=== PATIENT | male | born 1955 | race Caucasian/White ===

== ENCOUNTER 2022-05-27 23:10 | Inpatient (IN) | payer MEDICARE, BC, SELFPAY ==
[2022-05-27 23:57] VITALS: BMI 25.0
[2022-05-28] VITALS (8 sets, daily range): BP systolic 146–157; BP diastolic 64–102; PULSE 69–89; RESP 16–20; TEMP 36.2–36.7; O2SAT 94–98
[2022-05-28 05:32] LABS: Absolute Lymphocyte Count 2.09 X10^3/uL (0.83-4.51); Absolute Neutrophil Count 8.6 X10^3/uL (2.0-7.7); Basophil# 0.07 X10^3/uL; Basophil% 0.6 % (0-1); Eosinophil# 0.24 X10^3/uL; Hemoglobin 15.6 g/dL (13.0-16.5); Lymphocyte # 2.09 X10^3/ul (0.83-4.51); Lymphocyte % 17.5 % (19-41); Mean Corp Hgb Conc 33.9 g/dL (32-36); Mean Corpuscular Hgb 31.9 pg (27.0-32.0); Mean Corpuscular Volume 94.1 fL (80-94); Mean Platelet Vol. 8.9 fl (6.2-12.0); Monocyte# 0.88 X10^3/uL; Monocyte% 7.4 % (0-10); NRBC Flagged by Analyzer 0 % (0-5); Neutrophil % 72.2 % (47-70); Platelet Count 279 K/mm3 (150-450); RBC Distribution Width SD 44.6 fl (35.1-43.9); Red Blood Count 4.89 M/mm3 (4.6-6.2); White Blood Count 11.9 K/mm3 (4.4-11.0)
[2022-05-28 05:51] LABS: Anion Gap 8 (5-15); BUN 27 mg/dL (7-18); BUN/Creat Ratio 26.2 RATIO (10-20); Calcium,Total 8.8 mg/dL (8.5-10.1); Chloride 112 mmol/L (98-107); Creatinine, Serum 1.03 mg/dL (0.70-1.30); EST Glomerular Filtration Rate 77 mL/min (>60); Est Glom Filt Rate - Afr Amer 93 mL/min (>60); Glucose 168 mg/dL (74-106); Magnesium 2.2 mg/dL (1.6-2.6); Phosphorus 2.8 mg/dL (2.5-4.9); Potassium 3.8 mmol/L (3.5-5.1); Sodium Level 144 mmol/L (136-145)
[2022-05-28] MEDS: Metoprolol Tartrate 50 MG Tablet PO ×2 (09:10→21:55)
[2022-05-28] MEDS: dilTIAZem CD 240 MG Capsule PO (09:10)
[2022-05-28] MEDS: Senna/Docusate Sodium 1 Tablet 2 TABLET PO ×2 (09:10→21:55)
[2022-05-28] MEDS: Aspirin 81 MG TAB.CHEW PO (09:10)
--- NOTE | 2022-05-28 14:37 | HP.PCM_ITS ---
HPI - General General Date of Admission: 05/27/22 Date of Service: 05/28/22 Chief Complaint: Debility due to acute ischemic infarction in the L cerebral hemisphere with severe expressive aphasia, R side neglect and R side weakness. HPI Narrative MARY MATTHEWS, is a 66 YO M with a PMH of PAF (on Metoprolol for rate control) and chronic anticoagulation with Xarelto who presented to [facility] on 05/25/22 with complaint of facial droop, trouble walking and inability to speak. He was last seen normal at bedtime the night before. He was in AF at a rate of 134 bpm upon arrival at the emergency department. He had recently had a R rotator cuff repair on 04/16/22 and Xarelto had been held for 2 weeks. He was supposed to have restarted Xarelto but, his did not know if he ever resumed Xarelto after the surgery. NIH upon arrival at the ED was 6. CTB showed no bleeding. CTA of the head and neck showed the carotid and vertebral circulation to be within normal limits. There was a diminutive basilar artery. He was then sent for an MRI that demonstrated an acute ischemic infarction in the left cerebral hemisphere. An incidental finding was an arachnoid cyst in the left middle cranial fossa measuring 2 cm x 4 cm with no measurable mass-effect. Blood pressure at arrival to the emergency department was 187/116. He was started on Cardizem infusion and heparin. HGBA1C was 6.2 and the LDL was 114 with an HDL of 55. While at [facility] he also had a transthoracic echocardiogram that showed normal left ventricular function with an EF of 60%. There was no significant valvular heart disease. There was no mention on the ECHO report of a bubble study being done. He was seen by PT/OT/ST while in the hospital and recommendation was made for acute rehab at [place]. He was transferred to the acute inpt rehab unit at [facility] on 05/27/22 for 3 hours of therapy daily to restore function/independence at or hear his level prior to the stroke. He is retired and is very active at baseline. His told the SW that he does not smoke, drink or use drugs. the hx from nursing at admission last night was that he is a sometime smoker.....not daily. He loves to be in the outdoors. He did not arrive from [place] until 11 PM at night and he has been tearful several times in the 12 hours he has been here. He has no hx of depression. A.m. labs show a mildly elevated white blood cell count at 11.9 with a hem oglobin of 15.6 and normal platelets. Sodium is 144 and the chloride is 112. The BUN is elevated at 27 and the creatinine is 1.03 with an estimated creatinine clearance of 71.5. Fasting glucose is 168. Phosphorus and magnesium are within normal limits. [facility] Medical History (Updated 05/31/22 @ 12:[address] Elo Nava DO) Atrial fibrillation Hypertension Home Medications aspirin 81 mg chewable tablet 81 mg PO DAILY HEART HEALTH 05/28/22 [History Last Taken Unknown] atorvastatin 40 mg tablet 40 mg PO DAILY CHOLESTEROL 05/28/22 [History Last Taken Unknown] diltiazem HCl 240 mg tablet,extended release 24 hr (Cardizem LA) 240 mg PO DAILY HEART 05/28/22 [History Last Taken Unknown] metoprolol tartrate 25 mg tablet 50 mg BID HTN 05/28/22 [History Last Taken Unknown] oxycodone-acetaminophen 5 mg-325 mg tablet tab Q8H PRN PRN PAIN (1-10) 05/28/22 [History Last Taken Unknown] rivaroxaban 20 mg tablet (Xarelto) 20 mg PO DAILY BLOOD THINNER 05/28/22 [History Last Taken Unknown] Allergy/AdvReac Type Severity Reaction Status Date / Time No Known Allergies Allergy Verified 05/28/22 00:19 Family History unable to obtain Surgical History unable to obtain Social History household members: spouse and children housing: house number of children: 3 financial difficulty paying for basics: decline to answer service: No current occupational status: disabled pets and animals: No leisure activities: exercise, music and hunting Smoking Status: Former smoker ROS Review of Systems ROS Unobtainable: other Details: very limited due to aphasia. Cardiovascular Cardiovascular: Denies chest pain Respiratory/Chest Respiratory/Chest: Denies cough or shortness of breath with exertion Gastrointestinal Gastrointestinal: Denies abdominal pain Psychiatric Psychiatric: Reports other Details: no hx of anxiety or depression per his Vital Signs Vital Signs Vital Signs: 05/28/22 00:00 05/28/22 01:19 05/28/22 04:04 Temperature 97.6 F L 97.2 F L Temperature Source Temporal Oral Pulse Rate 69 86 89 Respiratory Rate 20 H 16 17 Respiratory Effort Normal Non-Labored Respiratory Depth Normal Respiratory Pattern Normal Blood Pressure 150/102 H 146/92 H Blood Pressure Mean 118 110 Blood Pressure Source Monitor Monitor Blood Pressure Position Semi-Fowlers Semi-Fowlers Blood Pressure Location Left Arm Left Arm Pulse Ox 94 98 96 Oxygen Delivery Method Room Air Room Air Room Air 05/28/22 09:10 05/28/22 09:15 05/28/22 14:01 Temperature 97.2 F L Temperature Source Oral Pulse Rate 73 73 Respiratory Rate 16 Respiratory Effort Respiratory Depth Respiratory Pattern Blood Pressure 157/64 H Blood Pressure Mean 95 Blood Pressure Source Monitor Blood Pressure Position Semi-Fowlers Blood Pressure Location Right Arm Pulse Ox 97 Oxygen Delivery Method Room Air Room Air Weight Weight: 169 lb 1.513 oz Body Mass Index (BMI) 25.0 Indicators for Scoring Admitted with or Primary Diagnosis of CVA/Stroke: Yes Hx of CVA/Stroke: No Modified [place] Score MRS Score at time of Evaluation: 4-Moderate/severe disability NIHSS NIHSS 1a. Level of Consciousness: Alert; keenly responsive 1b. LOC Questions: Answers neither question correctly. 1c. LOC Commands: Performs neither task correctly. 2. Best Gaze: Normal 3. Visual: Partial hemianopia 4. Facial Palsy: Partial paralysis (total or near-total paralysis of lower face) 5a. Left Arm: No drift; arm holds 90 (or 45) degrees for full 10 seconds 5b. Right Arm: UN=Amputation or joint fusion, explain: (recent R rotator cuff surgery on the R......only allowed passive ROM) 6a. Left Leg: No drift; leg holds 30-degree position for full 5 seconds 6b. Right Leg: No drift; leg holds 30-degree position for full 5 seconds (he can hold the leg up for 5 sec but, he has some hypertonicity ) 8. Sensory: Severe to total sensory loss; (R side) 9. Best Language: Severe aphasia; 10. Dysarthria: Severe dysarthria; 11. Extinction and Inattention: Profound nash-inattention or extinction to more than one modality; Total: 15 Physical Exam Const alert Constitutional Narrative: appears to be depressed.....he is tearful and looks very frustrated. He can produce only non-intelligible grunts when trying to speak. General Appearance: cooperative and well developed HEENT normocephalic and head/scalp atraumatic Mouth: dry mucous membranes Eyes PERRL and EOMs intact bilaterally Eyes Narrative: He has R side neglect but he can follow me from one side of the room to the other with his eyes. When I give him simple commands he does not follow them consistently and he will not move the R side to command but, if I demonstrate he will mimic me Neck No nuchal rigidity and no lymphadenopathy General: trachea midline Resp normal respiratory effort, normal air movement and clear to auscultation bilaterally Effort and Inspection: Negative for tachypneic, respiratory distress, labored or uses accessory muscles Cardio regular rate, regular rhythm, S1 normal heart sound, S2 normal heart sound, no murmurs, no rub and no gallops Cardio Narrative: No ectopy GI normal to inspection, nondistended, normoactive bowel sounds, soft to palpation and non-tender Extremity no calf tenderness General Extremity: Negative for clubbing, cyanosis or edema Skin General Skin Exam: no breakdown Rashes: no rashes Neuro Neuro Narrative: See the NIHSS R facial droop. + R side weakness, leg> arm. Intact sensation. Psych cooperative Psych Narrative: Tearful and depressed. Makes good eye contact with me when we are talking. Frustrated about not being able to talk. Can write a little......has an apraxia though. Not wiring what he wants to say. Results Lab / Micro Data Result Diagrams: 05/28/22 05:25 05/28/22 05:25 Labs: Laboratory Results - last 24 hr 05/28/22 05:25: WBC 11.9 H, RBC 4.89, Hgb 15.6, Hct 46.0, MCV 94.1 H, MCH 31.9, MCHC 33.9, RDW Std Deviation 44.6 H, RDW Coeff of Johan 13.0, Plt Count 279, MPV 8.9, Immature Gran % (Auto) 0.300, Neut % (Auto) 72.2 H, Lymph % (Auto) 17.5 L, [place] % (Auto) 7.4, Eos % (Auto) 2.0, Baso % (Auto) 0.6, Absolute Neuts (auto) 8.6 H, Absolute Lymphs (auto) 2.09, Nucleated RBC % 0 05/28/22 05:25: Sodium 144, Potassium 3.8, Chloride 112 H, Carbon Dioxide 24.0, Anion Gap 8, BUN 27 H, Creatinine 1.03, Estim Creat Clear Calc 71.50, Est GFR (MDRD) Af Amer 93, Est GFR (MDRD) Non-Af 77, BUN/Creatinine Ratio 26.2 H, Glucose 168 H, Calcium 8.8, Phosphorus 2.8, Magnesium 2.2 Assessment & Plan Assessment/Plan (1) Physical debility: PLAN: PT/OT/ST ordered (2) Ischemic cerebrovascular accident (CVA): (3) Right sided weakness: (4) Right-sided visual neglect: (5) Combined receptive and expressive aphasia: (6) Paroxysmal atrial fibrillation: (7) Chronic anticoagulation: (8) Hypertension: (9) Hyperglycemia: PLAN: check a HGBA1C and monitor BS's AC and HS for the next n72 hours. (10) Dyslipidemia: PLAN: On Atorvastatin 40 mg nightly (11) Depression as late effect of cerebrovascular accident (CVA): PLAN: Start Sertraline 50 mg daily. PLAN: Plan PLAN PT for gait stability OT for ADL's ST for evaluation Analgesics as needed Bowel protocol Fall precautions Assess for Anxiety/Depression - Sertraline started GI prophylaxis - not necessary at this time. No hx of PUD. DVT prophylaxis - on Xarelto Follow up with PCP, neurology and psychotherapist following DC from [facility] AM lab from this AM reviewed. Charges/Coding Visit Charges Inpatient E&M: 15966 Init Hosp L3
[2022-05-28] MEDS: Rivaroxaban 20 MG Tablet PO (16:03)
--- NOTE | 2022-05-28 16:30 | CASEMGMT ---
Social Work Met with patient to complete initial assessment. Introduced self and role. Pt unable to complete assessment d/t expressive aphasia. SW contacted whom also had dtr on phone to complete assessment. See SW assessment for details on home set up. Family's goal is for pt to return home at [facility]. Pt was full independent prior. Confirmed with pt's code status is a full code and pt has no advanced directives. SW offered to complete with pt during stay if pt is able. Educated to Medicare benefit. SW to continue to follow for DC planning as support as needed. Kailey Ryan, MVA STILL OPERATOR NURSERY ATTENDANT
[2022-05-28 16:35] LABS: Bedside Glucose 119 mg/dL (74-106)
[2022-05-28] MEDS: Atorvastatin Calcium 40 MG Tablet PO (21:56)
[2022-05-28 22:05] LABS: Bedside Glucose 133 mg/dL (74-106)
[2022-05-28] MEDS: NYSTATIN 500,000 UNIT/5 ML UDC 500000 UNIT PO (22:06)
[2022-05-29 06:40] LABS: Bedside Glucose 142 mg/dL (74-106)
[2022-05-29 07:41] VITALS: BP 139/90; PULSE 60; RESP 18; TEMP 36.9; O2SAT 96
[2022-05-29 09:11] VITALS: PULSE 78
[2022-05-29] MEDS: Senna/Docusate Sodium 1 Tablet 2 TABLET PO ×2 (09:11→20:51)
[2022-05-29] MEDS: dilTIAZem CD 240 MG Capsule PO (09:11)
[2022-05-29] MEDS: Sertraline 50 MG Tablet PO (09:11)
[2022-05-29] MEDS: Metoprolol Tartrate 50 MG Tablet PO ×2 (09:11→20:50)
[2022-05-29] MEDS: Aspirin 81 MG TAB.CHEW PO (09:12)
[2022-05-29] MEDS: NYSTATIN 500,000 UNIT/5 ML UDC 500000 UNIT PO ×4 (11:07→20:50)
[2022-05-29 12:45] LABS: Bedside Glucose 180 mg/dL (74-106)
[2022-05-29] MEDS: Insulin Lispro 100 UNIT/ML INSULN.PEN SC (13:15)
[2022-05-29 17:05] LABS: Bedside Glucose 142 mg/dL (74-106)
[2022-05-29] MEDS: Rivaroxaban 20 MG Tablet PO (17:15)
[2022-05-29 18:51] VITALS: BP 141/87; PULSE 69; RESP 18; TEMP 36.4; O2SAT 97
[2022-05-29 20:50] VITALS: BP 141/87; PULSE 69
[2022-05-29] MEDS: Atorvastatin Calcium 40 MG Tablet PO (20:50)
[2022-05-29 22:16] LABS: Bedside Glucose 168 mg/dL (74-106)
--- NOTE | 2022-05-30 02:53 | NURSING ---
REVIEWED AND AGREE WITH TANK CAR MECHANIC'S FUNCTIONAL ASSESSMENT AND HANDOFF CHARTING.
[2022-05-30] MEDS: Magnesium Hydroxide 30 ML UDC PO (05:05)
[2022-05-30 07:15] VITALS: O2SAT 93
[2022-05-30 07:30] LABS: Bedside Glucose 144 mg/dL (74-106)
[2022-05-30 07:32] VITALS: BP 148/92; PULSE 92; RESP 20; TEMP 36.7; O2SAT 96
[2022-05-30 08:09] VITALS: PULSE 92
[2022-05-30] MEDS: Aspirin 81 MG TAB.CHEW PO (08:09)
[2022-05-30] MEDS: dilTIAZem CD 240 MG Capsule PO (08:09)
[2022-05-30] MEDS: Sertraline 50 MG Tablet PO (08:09)
[2022-05-30] MEDS: Metoprolol Tartrate 50 MG Tablet PO ×2 (08:09→20:36)
[2022-05-30] MEDS: NYSTATIN 500,000 UNIT/5 ML UDC 500000 UNIT PO ×4 (08:09→20:35)
[2022-05-30] MEDS: Senna/Docusate Sodium 1 Tablet 2 TABLET PO ×2 (08:10→20:36)
[2022-05-30] MEDS: oxyCODONE 5 MG Tablet PO ×2 (08:55→22:06)
[2022-05-30 12:21] LABS: Bedside Glucose 148 mg/dL (74-106)
[2022-05-30 16:50] LABS: Bedside Glucose 144 mg/dL (74-106)
[2022-05-30] MEDS: Rivaroxaban 20 MG Tablet PO (17:05)
[2022-05-30 19:40] VITALS: BP 130/77; PULSE 66; RESP 15; TEMP 36.7; O2SAT 98
[2022-05-30 20:24] VITALS: PULSE 64; RESP 16; O2SAT 98
[2022-05-30 20:36] VITALS: PULSE 66
[2022-05-30] MEDS: Atorvastatin Calcium 40 MG Tablet PO (20:36)
[2022-05-30 21:05] LABS: Bedside Glucose 161 mg/dL (74-106)
[2022-05-31 06:30] LABS: Bedside Glucose 152 mg/dL (74-106)
[2022-05-31 07:25] VITALS: BP 135/90; PULSE 74; RESP 16; TEMP 36.2; O2SAT 97
[2022-05-31 07:29] VITALS: O2SAT 94
[2022-05-31] MEDS: dilTIAZem CD 240 MG Capsule PO (07:50)
[2022-05-31] MEDS: Insulin Lispro 100 UNIT/ML INSULN.PEN SC ×2 (07:50→12:05)
[2022-05-31] MEDS: Aspirin 81 MG TAB.CHEW PO (07:50)
[2022-05-31 07:51] VITALS: PULSE 77
[2022-05-31] MEDS: Senna/Docusate Sodium 1 Tablet 2 TABLET PO ×2 (07:51→21:09)
[2022-05-31] MEDS: Metoprolol Tartrate 50 MG Tablet PO ×2 (07:51→21:09)
[2022-05-31] MEDS: Sertraline 50 MG Tablet PO (07:51)
--- NOTE | 2022-05-31 09:07 | ST.MBS ---
Modified Barium Swallow - Patient Information Study Date: 05/31/22 Study Time: 08:00 Direct Billable Minutes: 180 Total Minutes procedure & reportin Diagnosis: I63.9, R41.4 Referring Physician: Elo Nava Reason for Referral: Objectively assess swallow function, risk for aspiration, and determine recommendations for least restrictive diet textures and compensatory strategies to improve safety of swallow. Medical History: MARY MATTHEWS, is a 66 YO M with a PMH of PAF (on Metoprolol for rate control) and chronic anticoagulation with Xarelto who presented to [facility] on 05/25/22 with complaint of facial droop, trouble walking and inability to speak. He was last seen normal at bedtime the night before. He was in AF at a rate of 134 bpm upon arrival at the emergency department. He had recently had a R rotator cuff repair on 04/16/22 and Xarelto had been held for 2 weeks. He was supposed to have restarted Xarelto but, his did not know if he ever resumed Xarelto after the surgery. NIH upon arrival at the ED was 6. CTB showed no bleeding. CTA of the head and neck showed the carotid and vertebral circulation to be within normal limits. There was a diminutive basilar artery. He was then sent for an MRI that demonstrated an acute ischemic infarction in the left cerebral hemisphere. An incidental finding was an arachnoid cyst in the left middle cranial fossa measuring 2 cm x 4 cm with no measurable mass-effect. Blood pressure at arrival to the emergency department was 187/116. While at [facility] he also had a transthoracic echocardiogram that showed normal left ventricular function with an EF of 60%. There was no significant valvular heart disease. There was no mention on the ECHO report of a bubble study being done. He was seen by PT/OT/ST while in the hospital and recommendation was made for acute rehab at [place]. He was transferred to the acute inpt rehab unit at [facility] on 05/27/22 for 3 hours of therapy daily to restore function/independence at or hear his level prior to the stroke. He is retired and is very active at baseline. Current Diet Ordered: PUREE/NTL Dentition: Natural Teeth, Missing Teeth Mental Status: Impaired Comment: s/p CVA - impaired verbal speech, impaired auditory comprehension Respiratory Status: Oxygenating on Room Air - Penetration-Aspiration Scale Penetration-Aspiration Scale: OBJECTIVE ASSESSMENT OF SWALLOW FUNCTION (QUANTITATIVE ? PER TRIAL): PENETRATION / ASPIRATION SCALE (YOUSSEF): 1 = does not enter airway 2 = enters airway/above vocal folds/ejected 3 = enters airway/above vocal folds/not ejected 4 = enters airway/contacts vocal folds/ejected 5 = enters airway/contacts vocal folds/not ejected 6 = enters airway/below vocal folds/ejected 7 = enters airway/below vocal folds/not ejected despite effort 8 = enters airway/below vocal folds/no effort VIDEOFLOROSCOPIC SCALE SCORE (YOUSSEF): Grade I = aspiration of material that has penetrated into the laryngeal vestibule, intact cough reflex Grade II = aspiration < 10 % of the bolus, intact cough reflex Grade III = aspiration of < 10 % of the bolus, reduced cough reflex or aspiration of > 10 % of the bolus, intact cough reflex Grade IV = aspiration of > 10 % of the bolus, reduced cough reflex - Penetration-Aspiration Scale Score Thin Liquid via teaspoon Trial 1 Result: 1= does not enter airway Thin Liquid via large single sip from cup Result: 1= does not enter airway [place] Thick Liquid via small single sip from cup Result: 1= does not enter airway [place] Thick Liquid via small single sip from cup Result: 1= does not enter airway Pudding Result: 1= does not enter airway Cookie Result: 1= does not enter airway Thin Liquid via large single sip from cup Trial 2 Result: 7= enters airways/below vocal folds/not ejected despite effort Thin Liquid via sequential sips from straw Result: 3= enters airways/above vocal folds/not ejected - Oral Phase Labial Seal: No Labial Escape Tongue Control During Bolus Hold: Posterior escape of greater than half of bolus Bolus Preparation/Mastication: Minimal chewing/mashing with majority of bolus unchewed Bolus Transport/Lingual Motion: Slowed tongue motion Oral Residue: Majority of bolus remaining - Pharyngeal Phase Initiation of Pharyngeal Swallow: Bolus head in pyriforms Soft Palate Elevation: No bolus between soft palate and pharyngeal wall Laryngeal Elevation: Partial superior movement thyroid cart/partial apprx aryt-epig petiole Anterior Hyoid Excursion: Partial anterior movement Epiglottic Movement: Partial inversion Laryngeal Vestibule Closure at Height of Swallow: Incomplete; narrow column of air/contrast in laryngeal vestibule Pharyngeal Stripping Wave: Present - diminished Pharyngoesophageal Segment Opening: Parital distension and partial duration; parital obstruction of flow Tongue Base Retraction: Narrow column of contrast between tongue base & post. pharyngeal wall Pharyngeal Residue: Collection of residue within or on pharyngeal structures - Diagnosis/Impression Diagnosis: moderate oropharyngeal dysphagia R13.12 Impression: Oral phase primarily marked by... - mastication insufficiency w/ piecemeal deglutition of cookie, 4x swallows to clear oral and pharyngeal residue - slowed tongue motion - decreased bolus control resulting in posterior loss of greater than half of bolus to the vallecula and pyriforms Pharyngeal phase primarily marked by... - decreased airway closure during deglutition attributed to reduced laryngeal elevation, anterior hyoid excursion and insufficient epiglottic inversion - laryngeal penetration seen by large sequential thin by straw and aspiration seen w/ large sip of thin via cup - collection of pharyngeal residue to the vallecula and pyriforms w/ various consistencies - increased risk for post prandial aspiration - Recommendations Diet: Puree Textures, [place]-thick Liquids Compensatory Strategies: Small Bites, Small Sips, Slow Rate, Feed only when alert, Alternate bites/solids and sips/liquids, Sitting upright, Remain sitting upright for 30 minutes after PO intake, Minimize/decrease distractions, Assist with verbal cues to use recommended strategies Supervision: 1:1 Close Supervision Recommend Repeat Modified Barium Swallow: TBD Need for Skilled Speech Therapy Services: Yes Comment: Would consider training and implementation of oropharyngeal strengthening exercises to facilitate improved oropharyngeal strength and coordination. Consider for upgrade to minced and moist textures w/ ELECTRONIC MASKING SYSTEM OPERATOR Consider for upgrade to small sips of thin by cup or thin by tsp w/ ELECTRONIC MASKING SYSTEM OPERATOR Education Completed: 1. Described result of evaluation., 2. Pt understands evaluation & agrees with goals and treatment plan. - Status Active ST Patient: Active - Contact Information [facility] Speech Therapy:: Unique Hoover M.A. [facility]-ELECTRONIC MASKING SYSTEM OPERATOR Speech-Language Pathologist [facility] [address] [place] [address] [email or web address] [phone] 05/31/22 10:19 05/31/22 10:20
[2022-05-31 11:55] LABS: Bedside Glucose 190 mg/dL (74-106)
[2022-05-31] MEDS: NYSTATIN 500,000 UNIT/5 ML UDC 500000 UNIT PO ×4 (12:05→21:09)
--- NOTE | 2022-05-31 15:18 | PCM.RU.PYE ---
Admission Information Primary Diagnosis:: Debility due to ischemic L cerebral CVA with expressive and receptive aphasia and R side weakness. Status Changes from Prescreening?: No changes Identified Actual Problem List:: Skin Intergrity, Cognitve Impr/Memory Loss, Depression, Alteration in Sleep, Mobility Impaired, Self Care Deficit, Ineffective Communication, Fluid Change-Dehydration and Alteration-Leisure Activ. Potential Problem List:: DVT, Bleeding, Infection, UTI, Aspiration, Falls, Skin Integrity and Depression Risk of Complications DVT: CRYSTAL Hose and - (Xarelto 20 mg p.o. daily) Bleeding: Monitor Lab Values, Nursing to Teach Precautions for anti-coagulation therapy., Wound, if applicable, to be assessed every shift. and Stroke patients assessed for lethargy or change in status. Infection: Clinical Staff to Monitor for S/S of infection: and S/S of infection include fever, redness, warmth, etc. Urinary Tract Infection: Monitor for frequency, burning, discomfort, or incontinence. and Nursing will obtain urine sample for urinalysis and C&S when ordered. Aspiration: Clinical staff will monitor for coughing, drooling, congestion., Speech will evaluate swallowing and dsyphasia. and Nursing will monitor patient swallowing during meals. Falls: Patient will be evaluated for Fall Precautions and Patient will be placed on Fall Precautions as indicated per protocol. Skin Breakdown: Nursing will assess skin daily using assessment tool. and Nursing will place on Skin Breakdown Precautions as indicated. Pain: Clinical staff will assess patient's pain level per protocol., Medications will be given, if needed, and the pain level reassessed. and Other methods: Massage, distraction, decrease stimulus, etc. used PRN. Plan of Care Patient requires physician specializing in physical medicine and rehab oversight to provide close medical supervision of rehab issues including: Pain Management, Sleep Problems, Bowel and Bladder, Medical and co-morbidity Management, DVT prophylaxis, Rehabilitation Leadership and Coordination of treatment team Patient needs Physical Therapy: For a minimum of 1 hour and At least 5 out of 7 days Patient needs Physical Therapy to improve:: Mobility, Strengthening, Transfers, Stretching, ROM, Endurance, Stairs, Gait and Balance Patient needs Occupational Therapy: For a minimum of 1 hour and At least 5 out of 7 days Patient needs Occupational Therapy to improve ADL's incl.: Eating, Grooming, Bathing, Dressing, Toileting, Toilet transfers, Community Reintegration, Higher functioning activities, Household tasks, Adaptive Equipment, Splinting and Other activities as determined Patient requires speech therapy: For a minimum of 1 hour and At least 5 out of 7 days Patient requires speech therapy for: Swallowing, Cognition, Language Skills and Compensatory Strategies Patient requires 24/ Rehabilitation Nursing for: Pain Issues, Identifying and preventing risk factors, Monitoring and reporting current medical conditions, Assisting with ambulation, transfer, and all ADL's, Teaching patients about disease process and medications, Family teaching, Providing safe environment, Bowel and Bladder Issues, Skin integrity and Medication Management Patient needs Hiv Cts Specialist/ Case Management for: Discharge Planning, Arranging Home Equipment or Services and Family Interventions Patient needs Dietary and Nutrition Services for: Adequate Nutrition, Nutritional Supplements and Nutritional Education Goals Patient will remain: free from falls and or injury at time of discharge. Patient will perform bed mobility at: MOD I level of assist. Patient will complete transfers from bed to chair at: MOD I level of assist. Patient will ambulate: - (200 feet with least restrictive device at standby assist on various surfaces to allow patient to return home/community) Patient will complete upper body dressing at: - (To be assessed as he progresses and goals adjusted accordingly.) Patient will complete lower body dressing at: - (min assist) Patient will complete toileting at: - (Supervised) Patient will perform bathing at: - (Supervision/min assist) Patient will complete grooming at: MOD I level of assist. (or supervision.....) Patient will complete home management skills at: MOD I level of assist. Patient will achieve: - (3 steps with 1 handrail at contact-guard assist to allow access to his home entrance.) Patient will have pain level of: of 3 or less Patient's skin will: remain intact Patient will receive: adequate nutrition. Discharge Planning Pt Prognosis for Sig. Practical Improv. w/in Reasonable Time: Good Estimated Length of stay (days): 28 Anticipated D/C Destination: Home Was Preadmission Assessment Accurate?: Yes
--- NOTE | 2022-05-31 15:26 | PCM.PROGNOTE ---
Subjective Subjective Afebrile VSS-blood pressures are frequently above the goal of 130/80. Heart rate is well controlled. Maintaining appropriate oxygen saturation on RA Oral intake is getting better. He ate 75 to 100% of his breakfast this AM. Blood sugar record was reviewed. Blood sugars are consistently elevated. Hemoglobin A1c ordered for the AM. He has only had 3 total units of insulin coverage since he was placed on a sliding scale. Discussed with nursing - no problems that need addressed Reviewed the PT/OT/ST notes Medication list reviewed. Has not taken any Trazodone. He took 2 doses of Oxycodone 5 mg on 05/30 and has not taken any today. Still nonverbal. Seems to understand what I am saying. Does not appear to be in pain or uncomfortable. Objective Data Objective Data Vital Signs: Vital Signs Temp Pulse Resp BP Pulse Ox O2 Del Method 97.2 F L 77 16 135/90 H 94 Room Air 05/31/22 07:25 05/31/22 07:51 05/31/22 07:25 05/31/22 07:25 05/31/22 07:29 05/31/22 10:00 Oxygen Delivery Method Room Air Weight: 169 lb 1.513 oz Body Mass Index (BMI) 25.0 Intake & Output: Intake and Output for Last 24 Hours 05/29/22 05/30/22 05/31/22 23:59 23:59 23:59 Intake Total 600 / 600 60 / 60 540 / 540 Output Total 650 / 650 675 / 675 250 / 250 Balance -50 / -50 -615 / -615 290 / 290 Lab / Micro Data Result Diagrams: 05/28/22 05:25 06/01/22 05:30 Labs: Laboratory Results - last 24 hr 05/30/22 16:29: POC Glucose 144 H 05/30/22 20:43: POC Glucose 161 H 05/31/22 06:07: POC Glucose 152 H 05/31/22 11:06: POC Glucose 190 H Physical Exam Const Constitutional Narrative: awake, making eye contact with me, non-verbal still HEENT HEENT Narrative: still with pronounced R facial droop Eyes Eyes Narrative: PERRL, EOMI, can cross the midline Resp Resp Narrative: CTA Cardio Cardio Narrative: irreg irreg today but with controlled VR GI GI Narrative: soft, ND, normal BS's, no guarding with palpation. Extremity Extremity Narrative: no edema Assessment & Plan Assessment/Plan (1) Physical debility: PLAN: Continue therapy (2) Ischemic cerebrovascular accident (CVA): PLAN: embolic......may not have been taking Xarelto at the time of the stroke. suspects he never restarted the medication after the rotator cuff surgery (3) Right sided weakness: (4) Combined receptive and expressive aphasia: (5) Chronic anticoagulation: PLAN: continue Xarelto Charges/Coding Visit Charges Inpatient E&M: 00189 Subs Hosp L2
[2022-05-31 16:31] LABS: Bedside Glucose 106 mg/dL (74-106)
[2022-05-31] MEDS: Rivaroxaban 20 MG Tablet PO (16:55)
[2022-05-31 19:10] VITALS: BP 129/82; PULSE 60; RESP 18; TEMP 36.5; O2SAT 98
[2022-05-31 21:09] VITALS: PULSE 63
[2022-05-31] MEDS: Atorvastatin Calcium 40 MG Tablet PO (21:09)
[2022-05-31] MEDS: oxyCODONE 5 MG Tablet PO (21:11)
[2022-05-31 21:57] VITALS: PULSE 63; RESP 16; O2SAT 96
[2022-05-31 22:45] LABS: Bedside Glucose 152 mg/dL (74-106)
[2022-06-01 06:51] LABS: ALB/GLOB Ratio 0.9 RATIO (0.9-2.4); AST(SGOT) 17 U/L (15-37); Alanine Aminotransfer ALT/SGPT 29 U/L (16-61); Albumin, Serum 3.4 g/dL (3.2-5.0); Alkaline Phosphatase 75 U/L (45-117); Anion Gap 8 (5-15); BUN 28 mg/dL (7-18); BUN/Creat Ratio 28.4 RATIO (10-20); Calcium,Total 8.7 mg/dL (8.5-10.1); Chloride 104 mmol/L (98-107); Creatinine, Serum 0.98 mg/dL (0.70-1.30); EST Glomerular Filtration Rate 81 mL/min (>60); Est Glom Filt Rate - Afr Amer 98 mL/min (>60); Estimated Creatinine Clearance 75.15 ml/min; Globulin 3.6 g/dL (2.2-4.2); Glucose 138 mg/dL (74-106); Potassium 3.7 mmol/L (3.5-5.1); Sodium Level 139 mmol/L (136-145)
[2022-06-01 07:20] LABS: Bedside Glucose 135 mg/dL (74-106)
[2022-06-01 07:55] LABS: Hemoglobin A1c 6.2 % (3.8-5.6)
[2022-06-01] MEDS: dilTIAZem CD 240 MG Capsule PO (08:14)
[2022-06-01] MEDS: Sertraline 50 MG Tablet PO (08:14)
[2022-06-01] MEDS: Aspirin 81 MG TAB.CHEW PO (08:14)
[2022-06-01 08:15] VITALS: BP 124/88; PULSE 76
[2022-06-01] MEDS: Senna/Docusate Sodium 1 Tablet 2 TABLET PO ×2 (08:15→22:03)
[2022-06-01] MEDS: Metoprolol Tartrate 50 MG Tablet PO (08:15)
[2022-06-01] MEDS: NYSTATIN 500,000 UNIT/5 ML UDC 500000 UNIT PO ×4 (08:15→22:03)
[2022-06-01 08:27] VITALS: BP 124/88; PULSE 76; RESP 16; TEMP 36.2; O2SAT 97
--- NOTE | 2022-06-01 10:03 | CASEMGMT ---
Social Work IDT met with patient and , dtr via conference call for Team meeting. Discussed patient's progress in PT/OT/ST/SN. Educated to Medicare benefit. Pt/family goal is for pt to return home with , however, is only able to minimally assist. Broached topic of pt may needing SNF placement from [place]. Educated to SNF Medicare benefit. Offered to send SNF list via [employer]. Dtr prefers to have list printed out and left in pt room to review with pts and pt during visit. Printed list of SNF providers including quality and resource use data and consistent with the patient?s preferred geographic region, medical needs, and insurance network via [employer] Guide. Educated to Stroke Support Group and left brochure in pt room for family during their visit.SW to continue to follow for DC planning. Will Reteam next week. [place]
--- NOTE | 2022-06-01 11:52 | PCM.PROGNOTE ---
Subjective Subjective Don was seen on TEAM rounds today. His dtr Karina and his participated by phone. Afebrile VSS - BP's are not at goal yet and he is 6 days out from the stroke Maintaining appropriate oxygen saturation on RA Oral intake is not the greatest. Refused breakfast this AM but, took 75-100% of supper last evening and also took 75-100% of lunch. Discussed with nursing - no problems that need addressed Reviewed the PT/OT/ST notes - still frustrated about not being able to communicate what he wants to say. Decreased his time with the TUG already. Having speech and writing apraxia. Also with Left side neglect. Vision is intact to confrontation. Medication list reviewed. Non- verbal. Yes and no answers are not consistently appropriate. He looks comfortable. After review of the flow chart it appears as though he is continent of urine and stool. PVR's were all less than 200. Breathing is not labored. He engages when we were all talking about him on rounds. ROS is compromised by the aphasia. Lab was personally reviewed today. Potassium is 3.7 and the sodium is normal at 139. The BUN is 28 with a creatinine of 0.98 which is stable. Hemoglobin A1c is 6.2. LFTs are within normal limits. I reviewed the results of the MBS yesterday. He has moderate oral pharyngeal dysphagia and will continue on pur?ed textures and nectar thick liquids. He aspirated thin liquids by straw and by cup. Objective Data Objective Data Vital Signs: Vital Signs Temp Pulse Resp BP Pulse Ox O2 Del Method 97.2 F L 76 16 124/88 H 97 Room Air 06/01/22 08:27 06/01/22 08:27 06/01/22 08:27 06/01/22 08:27 06/01/22 08:27 06/01/22 08:36 Oxygen Delivery Method Room Air Weight: 169 lb 8.568 oz Body Mass Index (BMI) 25.0 Intake & Output: Intake and Output for Last 24 Hours 05/30/22 05/31/22 06/01/22 23:59 23:59 23:59 Intake Total 60 / 60 1979 / 1979 60 / 60 Output Total 675 / 675 1500 / 1500 600 / 600 Balance -615 / -615 480 / 480 -540 / -540 Lab / Micro Data Result Diagrams: 05/28/22 05:25 06/01/22 05:30 Labs: Laboratory Results - last 24 hr 05/31/22 11:06: POC Glucose 190 H 05/31/22 16:10: POC Glucose 106 05/31/22 21:07: POC Glucose 152 H 06/01/22 05:30: Sodium 139, Potassium 3.7, Chloride 104, Carbon Dioxide 27.0, Anion Gap 8, BUN 28 H, Creatinine 0.98, Estim Creat Clear Calc 75.15, Est GFR (MDRD) Af Amer 98, Est GFR (MDRD) Non-Af 81, BUN/Creatinine Ratio 28.4 H, Glucose 138 H, Calcium 8.7, Total Bilirubin 1.00, AST 17, ALT 29, Alkaline Phosphatase 75, Total Protein 7.0, Albumin 3.4, Globulin 3.6, Albumin/Globulin Ratio 0.9 06/01/22 05:30: Hemoglobin A1c 6.2 H 06/01/22 06:59: POC Glucose 135 H Physical Exam Const alert and no apparent distress General Appearance: cooperative Eyes PERRL and EOMs intact bilaterally Eyes Narrative: He can track past the midline when I move from 1 side of the room to the other. Resp normal respiratory effort, normal air movement and clear to auscultation bilaterally Resp Narrative: occasional cough. Cardio regular rate, regular rhythm and no gallops GI normal to inspection, nondistended, normoactive bowel sounds, soft to palpation and non-tender Extremity no calf tenderness General Extremity: Negative for edema Skin General Skin Exam: no breakdown Rashes: no rashes Neuro Neuro Narrative: unable to produce sound yet other than a grunt. Persistent R side weakness and Left side neglect. Psych Psych Narrative: Sleeping well without a sleep aid. Eating pretty good most meals. Making eye contact with the person talking to him. No tears today. Assessment & Plan Assessment/Plan (1) Physical debility: PLAN: Continue therapy. (2) Ischemic cerebrovascular accident (CVA): PLAN: Likely embolic due to non-compliance with Xarelto following the rotator cuff repair. (3) Right sided weakness: (4) Ric-neglect of left side: (5) Apraxia complicating stroke: (6) Combined receptive and expressive aphasia: (7) Paroxysmal atrial fibrillation: (8) Chronic anticoagulation: (9) Prediabetes: (10) Dyslipidemia: PLAN: LDL was 114......on Atorvastatin now and the goal is LDL less than 70 (11) Hypertension: PLAN: Not at goal yet. Today is day #6 post stroke. Starting tomorrow if the BP is above goal will need to adjust antihypertensive regimen. 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 PLAN: Plan Discussed what an apraxia is with the family. Discussed starting an antidepressant and why it was started. Discussed goals of treatment to prevent another stroke. We do not know for sure if he was taking the Xarelto and if he was, was it being absorbed. Will order a Factor XI activity level next week to make sure that he is absorbing. All questions were answered and Don gave me a thumbs up at the conclusion of the meeting today. Will ask ST to start Arthur water protocol to keep him better hydrated. Charges/Coding Visit Charges Inpatient E&M: 30170 Subs Hosp L2
[2022-06-01 12:15] LABS: Bedside Glucose 164 mg/dL (74-106)
[2022-06-01] MEDS: Insulin Lispro 100 UNIT/ML INSULN.PEN SC (12:15)
[2022-06-01] MEDS: metFORMIN HCl 500 MG Tablet PO (14:54)
[2022-06-01 16:21] LABS: Bedside Glucose 148 mg/dL (74-106)
[2022-06-01] MEDS: Rivaroxaban 20 MG Tablet PO (17:11)
[2022-06-01 21:48] VITALS: BP 122/64; PULSE 54; RESP 16; TEMP 36.9; O2SAT 96
[2022-06-01] MEDS: Atorvastatin Calcium 40 MG Tablet PO (22:03)
[2022-06-01 22:04] VITALS: PULSE 54
[2022-06-01 22:20] LABS: Bedside Glucose 130 mg/dL (74-106)
[2022-06-02 07:30] LABS: Bedside Glucose 150 mg/dL (74-106)
[2022-06-02 08:03] VITALS: BP 139/75; PULSE 68
[2022-06-02] MEDS: Sertraline 50 MG Tablet PO (08:03)
[2022-06-02] MEDS: Metoprolol Tartrate 50 MG Tablet PO (08:03)
[2022-06-02] MEDS: dilTIAZem CD 240 MG Capsule PO (08:03)
[2022-06-02] MEDS: Senna/Docusate Sodium 1 Tablet 2 TABLET PO (08:03)
[2022-06-02] MEDS: metFORMIN HCl 500 MG Tablet PO (08:03)
[2022-06-02] MEDS: Insulin Lispro 100 UNIT/ML INSULN.PEN SC ×2 (08:03→17:37)
[2022-06-02] MEDS: Aspirin 81 MG TAB.CHEW PO (08:03)
[2022-06-02] MEDS: NYSTATIN 500,000 UNIT/5 ML UDC 500000 UNIT PO ×3 (08:03→20:30)
[2022-06-02 08:26] VITALS: BP 139/75; PULSE 68; RESP 16; TEMP 36.4; O2SAT 97
[2022-06-02 11:46] LABS: Bedside Glucose 132 mg/dL (74-106)
[2022-06-02] MEDS: Magnesium Hydroxide 30 ML UDC PO (13:29)
[2022-06-02 13:42] VITALS: O2SAT 98
--- NOTE | 2022-06-02 15:56 | CASEMGMT ---
Addendum entered by Kailey Ryan 06/02/22 16:07: Dtr requesting SNF list in [facility]. Provided updated list via [employer] Link to both dtr and 's cell phones. Original Note: Social Work Received Medicare days. Dtr visiting. SW updated dtr Medicare approved 18 days, with EDC 06/14. Dtr appreciative. [place]
[2022-06-02 16:56] LABS: Bedside Glucose 156 mg/dL (74-106)
[2022-06-02] MEDS: Rivaroxaban 20 MG Tablet PO (17:37)
[2022-06-02 19:32] VITALS: BP 124/68; PULSE 52; RESP 14; TEMP 36.2; O2SAT 95
[2022-06-02 20:13] VITALS: RESP 16
[2022-06-02] MEDS: Atorvastatin Calcium 40 MG Tablet PO (20:23)
[2022-06-02 20:36] VITALS: PULSE 51
[2022-06-02 21:06] LABS: Bedside Glucose 183 mg/dL (74-106)
[2022-06-03] VITALS (7 sets, daily range): BP systolic 127–148; BP diastolic 55–68; PULSE 50–51; RESP 16; TEMP 36.4–36.7; O2SAT 94–100
[2022-06-03 07:20] LABS: Bedside Glucose 150 mg/dL (74-106)
[2022-06-03] MEDS: NYSTATIN 500,000 UNIT/5 ML UDC 500000 UNIT PO ×3 (08:24→20:43)
[2022-06-03] MEDS: dilTIAZem CD 240 MG Capsule PO (08:25)
[2022-06-03] MEDS: Sertraline 50 MG Tablet PO (08:25)
[2022-06-03] MEDS: Senna/Docusate Sodium 1 Tablet 2 TABLET PO (08:25)
[2022-06-03] MEDS: Metoprolol Tartrate 50 MG Tablet PO ×2 (08:25→20:44)
[2022-06-03] MEDS: metFORMIN HCl 500 MG Tablet PO (08:25)
[2022-06-03] MEDS: Insulin Lispro 100 UNIT/ML INSULN.PEN SC (08:25)
[2022-06-03] MEDS: Aspirin 81 MG TAB.CHEW PO (08:25)
--- NOTE | 2022-06-03 11:10 | PN_ITS ---
Subjective Subjective Afebrile VSS -heart rate at night drops into the 50s. The systolic blood pressure yesterday ranged from 1 24-1 48 this morning. Diastolics are within goal. Maintaining appropriate oxygen saturation on RA Oral intake is improved. He took 1140 by mouth yesterday. Fluid balance yesterday was +65 and overnight he was +370. The blood sugar record was reviewed and he has had no hypoglycemia since the Glucophage was started. FBS today is 150 and the at bedtime blood sugar was 183. Discussed with nursing - no problems that need addressed. Nursing is concerned about the HR at night. He is on 50 mg BID of Metoprolol and 240 mg of Cardizem CD. Reviewed the PT/OT/ST notes - D/W the St yesterday and he was able to verbalize when singing [employer]. Bed mobility is at contact-guard assist/standby assist now. He transfers to stand at contact-guard assist/min assist. He has ambulated up to 100 feet at min/CGA with a hemiwalker. He is able to complete three 4 inch steps with 1 handrail at min assist x2. Medication list reviewed. He denies pain. He is appropriately shaking his head yes and no today. Denies CP, SOB, HERNANDEZ, lightheadedness, palpitations, dysuria. Family was in his room when I visited later in the day and he was engaged and smiling and interacting with them. Objective Data Objective Data Vital Signs: Vital Signs Temp Pulse Resp BP Pulse Ox O2 Del Method 98.0 F 51 L 16 148/55 H 100 Room Air 06/03/22 07:44 06/03/22 08:25 06/03/22 07:44 06/03/22 08:25 06/03/22 07:44 06/03/22 07:44 Oxygen Delivery Method Room Air Weight: 167 lb 5.294 oz Body Mass Index (BMI) 25.0 Intake & Output: Intake and Output for Last 24 Hours 06/01/22 06/02/22 06/03/22 23:59 23:59 23:59 Intake Total 540 / 540 1140 / 1140 720 / 720 Output Total 1050 / 1350 1075 / 1075 350 / 350 Balance -510 / -810 65 / 65 370 / 370 Lab / Micro Data Result Diagrams: 05/28/22 05:25 06/01/22 05:30 Labs: Laboratory Results - last 24 hr 06/02/22 11:24: POC Glucose 132 H 06/02/22 16:19: POC Glucose 156 H 06/02/22 20:35: POC Glucose 183 H 06/03/22 06:14: POC Glucose 150 H Physical Exam Const Constitutional Narrative: alert, smiling, engaged, good eye contact, no tears and he is much more animated. Was able to repeat Mama ad a few other sounds to me. Good understanding of what I am saying. HEENT HEENT Narrative: MM are moist Resp Resp Narrative: CTA Cardio Cardio Narrative: RRR today, not bradycardic when I examined him today. No gallop, no MM GI GI Narrative: Soft, nontender, nondistended, normal bowel sounds, no guarding with palpation. Extremity Extremity Narrative: No edema and no calf tenderness. Skin Skin Narrative: no rashes and no breakdown Assessment & Plan Assessment/Plan (1) Physical debility: (2) Ischemic cerebrovascular accident (CVA): (3) Right sided weakness: (4) Combined receptive and expressive aphasia: (5) Prediabetes: (6) Apraxia complicating stroke: (7) Ric-neglect of left side: (8) Depression as late effect of cerebrovascular accident (CVA): (9) Paroxysmal atrial fibrillation: (10) Chronic anticoagulation: (11) Bradycardia: PLAN: Plan 1. HH/BMP and a TSH in the AM. 2. Continue therapy. 3. Change the diet to Carb controlled, heart healthy 4. Overnight trending pulse ox to see if the low HR may be related to central sleep apnea due to the stroke 5. Continue Metformin 500 mg daily.......if BS's remain > 180 will increase to BID. Charges/Coding Visit Charges Inpatient E&M: 76968 Subs Hosp L2
[2022-06-03 11:45] LABS: Bedside Glucose 132 mg/dL (74-106)
[2022-06-03 16:55] LABS: Bedside Glucose 123 mg/dL (74-106)
[2022-06-03] MEDS: Rivaroxaban 20 MG Tablet PO (17:00)
[2022-06-03] MEDS: Atorvastatin Calcium 40 MG Tablet PO (20:43)
[2022-06-03 22:00] LABS: Bedside Glucose 140 mg/dL (74-106)
[2022-06-04 05:40] LABS: Hematocrit 40.8 % (40-54)
[2022-06-04 06:09] LABS: Anion Gap 6 (5-15); BUN 22 mg/dL (7-18); BUN/Creat Ratio 20.4 RATIO (10-20); Calcium,Total 8.8 mg/dL (8.5-10.1); Chloride 105 mmol/L (98-107); Creatinine, Serum 1.08 mg/dL (0.70-1.30); EST Glomerular Filtration Rate 73 mL/min (>60); Est Glom Filt Rate - Afr Amer 88 mL/min (>60); Estimated Creatinine Clearance 68.19 ml/min; Glucose 139 mg/dL (74-106); Potassium 4.1 mmol/L (3.5-5.1); Sodium Level 138 mmol/L (136-145); Thyroid Stim Hormone (TSH) 2.49 uIU/mL (0.358-3.74)
[2022-06-04 07:19] VITALS: BP 165/85; PULSE 52; RESP 15; TEMP 36.3; O2SAT 97
[2022-06-04 07:25] LABS: Bedside Glucose 144 mg/dL (74-106)
[2022-06-04 08:51] VITALS: PULSE 52
[2022-06-04] MEDS: Senna/Docusate Sodium 1 Tablet 2 TABLET PO (08:51)
[2022-06-04] MEDS: Metoprolol Tartrate 50 MG Tablet PO ×2 (08:51→22:17)
[2022-06-04] MEDS: Aspirin 81 MG TAB.CHEW PO (08:51)
[2022-06-04] MEDS: dilTIAZem CD 240 MG Capsule PO (08:51)
[2022-06-04] MEDS: Sertraline 50 MG Tablet PO (08:51)
[2022-06-04] MEDS: metFORMIN HCl 500 MG Tablet PO (08:51)
[2022-06-04] MEDS: NYSTATIN 500,000 UNIT/5 ML UDC 500000 UNIT PO ×4 (11:44→21:49)
[2022-06-04] MEDS: Insulin Lispro 100 UNIT/ML INSULN.PEN SC ×2 (12:30→17:34)
[2022-06-04 12:40] LABS: Bedside Glucose 162 mg/dL (74-106)
[2022-06-04] MEDS: Rivaroxaban 20 MG Tablet PO (17:22)
[2022-06-04 17:55] LABS: Bedside Glucose 158 mg/dL (74-106)
[2022-06-04] MEDS: Atorvastatin Calcium 40 MG Tablet PO (21:49)
[2022-06-04 22:00] VITALS: BP 130/65; PULSE 52; RESP 16; TEMP 36.5; O2SAT 96
[2022-06-04 22:17] VITALS: PULSE 52
[2022-06-04 22:41] LABS: Bedside Glucose 137 mg/dL (74-106)
[2022-06-05 06:36] LABS: Bedside Glucose 159 mg/dL (74-106)
[2022-06-05 07:55] VITALS: BP 147/63; PULSE 52; RESP 16; TEMP 36.8; O2SAT 97
[2022-06-05] MEDS: Insulin Lispro 100 UNIT/ML INSULN.PEN SC ×3 (08:19→17:42)
[2022-06-05] MEDS: metFORMIN HCl 500 MG Tablet PO (08:21)
[2022-06-05] MEDS: Aspirin 81 MG TAB.CHEW PO (08:21)
[2022-06-05] MEDS: NYSTATIN 500,000 UNIT/5 ML UDC 500000 UNIT PO ×4 (08:23→21:33)
[2022-06-05] MEDS: Sertraline 50 MG Tablet PO (08:23)
[2022-06-05 08:24] VITALS: PULSE 52
[2022-06-05] MEDS: dilTIAZem CD 180 MG Capsule PO (08:24)
[2022-06-05] MEDS: Senna/Docusate Sodium 1 Tablet 2 TABLET PO ×2 (08:24→21:33)
[2022-06-05] MEDS: Metoprolol Tartrate 50 MG Tablet PO ×2 (08:24→21:32)
[2022-06-05 11:40] LABS: Bedside Glucose 158 mg/dL (74-106)
[2022-06-05 16:41] LABS: Bedside Glucose 162 mg/dL (74-106)
[2022-06-05] MEDS: Rivaroxaban 20 MG Tablet PO (17:42)
[2022-06-05 19:27] VITALS: BP 123/66; PULSE 56; RESP 18; TEMP 36.6; O2SAT 96
[2022-06-05 21:11] LABS: Bedside Glucose 143 mg/dL (74-106)
[2022-06-05 21:32] VITALS: PULSE 54
[2022-06-05] MEDS: Atorvastatin Calcium 40 MG Tablet PO (21:32)
[2022-06-05 22:00] VITALS: PULSE 56; RESP 16; O2SAT 97
[2022-06-06 06:31] LABS: Bedside Glucose 146 mg/dL (74-106)
[2022-06-06] MEDS: Aspirin 81 MG TAB.CHEW PO (09:10)
[2022-06-06] MEDS: metFORMIN HCl 500 MG Tablet PO (09:10)
[2022-06-06 10:00] VITALS: BP 153/76; PULSE 50; RESP 17; TEMP 35.9; O2SAT 99
[2022-06-06 10:41] VITALS: PULSE 52
[2022-06-06] MEDS: Metoprolol Tartrate 50 MG Tablet PO ×2 (10:41→21:36)
[2022-06-06] MEDS: Senna/Docusate Sodium 1 Tablet 2 TABLET PO ×2 (10:41→21:37)
[2022-06-06] MEDS: dilTIAZem CD 180 MG Capsule PO (10:41)
[2022-06-06] MEDS: Sertraline 50 MG Tablet PO (10:49)
[2022-06-06 11:36] LABS: Bedside Glucose 149 mg/dL (74-106)
[2022-06-06 16:26] LABS: Bedside Glucose 124 mg/dL (74-106)
[2022-06-06] MEDS: Rivaroxaban 20 MG Tablet PO (17:23)
[2022-06-06 19:11] VITALS: BP 120/59; PULSE 53; RESP 18; TEMP 36.6; O2SAT 95
--- NOTE | 2022-06-06 19:34 | NURSING ---
Family could be heard from nursing station laughing and giggling while visiting. Pt found to be enthusiastic when this nurse entered room at shift change. Pt attempted to say my name. When I asked him if he'd said my name he nodded and appeared very proud of himself. 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 Spouse told my her small family are working hard to make arrangements for getting in to visit him this week. Pt is full of smiles even after family departs.
[2022-06-06 21:36] VITALS: PULSE 54
[2022-06-06] MEDS: Atorvastatin Calcium 40 MG Tablet PO (21:36)
[2022-06-06 22:00] VITALS: PULSE 54; RESP 16; O2SAT 99
[2022-06-06 22:15] LABS: Bedside Glucose 142 mg/dL (74-106)
[2022-06-07 06:11] LABS: Bedside Glucose 138 mg/dL (74-106)
[2022-06-07 07:17] VITALS: BP 144/77; PULSE 51; RESP 17; TEMP 36.1; O2SAT 98
[2022-06-07] MEDS: metFORMIN HCl 500 MG Tablet PO (08:02)
[2022-06-07] MEDS: Senna/Docusate Sodium 1 Tablet 2 TABLET PO (08:02)
[2022-06-07] MEDS: Aspirin 81 MG TAB.CHEW PO (08:02)
[2022-06-07 08:03] VITALS: PULSE 51
[2022-06-07] MEDS: dilTIAZem CD 180 MG Capsule PO (08:03)
[2022-06-07] MEDS: Sertraline 50 MG Tablet PO (08:03)
[2022-06-07] MEDS: Metoprolol Tartrate 50 MG Tablet PO ×2 (08:03→20:53)
[2022-06-07 12:00] LABS: Bedside Glucose 120 mg/dL (74-106)
--- NOTE | 2022-06-07 16:31 | CASEMGMT ---
Social Work IDT met with patient and , dtr via conference call for Team meeting. Discussed patient's progress in PT/OT/ST/SN. Pt is scheduled to DC 06/14, per Medicare. Offered for family to schedule therapy training to determine DC plan - home vs SNF. Dtr to review schedule and notify therapy of time. SW to continue to follow for DC planning. Kailey Ryan, [employer]
[2022-06-07 17:20] LABS: Bedside Glucose 129 mg/dL (74-106)
[2022-06-07] MEDS: Rivaroxaban 20 MG Tablet PO (17:25)
[2022-06-07 20:40] VITALS: BP 134/61; PULSE 52; RESP 16; TEMP 36.6; O2SAT 97
[2022-06-07 20:53] VITALS: PULSE 52
[2022-06-07] MEDS: Atorvastatin Calcium 40 MG Tablet PO (20:53)
[2022-06-07 21:16] LABS: Bedside Glucose 138 mg/dL (74-106)
[2022-06-08 05:00] VITALS: BMI 25.0
[2022-06-08 07:05] LABS: Bedside Glucose 137 mg/dL (74-106)
[2022-06-08 08:03] VITALS: PULSE 62
[2022-06-08] MEDS: Sertraline 50 MG Tablet PO (08:03)
[2022-06-08] MEDS: Metoprolol Tartrate 50 MG Tablet PO ×2 (08:03→20:55)
[2022-06-08] MEDS: Aspirin 81 MG TAB.CHEW PO (08:03)
[2022-06-08] MEDS: metFORMIN HCl 500 MG Tablet PO (08:03)
[2022-06-08] MEDS: dilTIAZem CD 180 MG Capsule PO (08:03)
[2022-06-08] MEDS: Senna/Docusate Sodium 1 Tablet 2 TABLET PO (08:03)
[2022-06-08 10:00] VITALS: BP 143/76; PULSE 50; RESP 18; TEMP 36.5; O2SAT 95
[2022-06-08 11:26] LABS: Bedside Glucose 151 mg/dL (74-106)
[2022-06-08] MEDS: Insulin Lispro 100 UNIT/ML INSULN.PEN SC (12:07)
[2022-06-08 14:33] VITALS: BMI 25.0
--- NOTE | 2022-06-08 16:17 | PN_ITS ---
Subjective Subjective This is a late entry for 06/07/22. Yariel was seen on TEAM rounds today. His dtr Karina and his Janet riddlei pated by phone. Afebrile Vital signs are stable. Systolic is occasionally mildly elevated but, the diastolic is always within goal. HR is ranging from 50-62 and he denies lightheadedness - the HR increases with exercise. Good oral intake Nursing tells me that he is sleeping well and is cooperative. No concerns today. I reviewed the PT/OT/ST notes and he is making good progress. BS record was reviewed. BS's are for the most part < 150...occasional in the 160's now. No hypoglycemia He denies CP, SOB, palpitations, N/V/D/C, abd pain, calf pain, dysuria, cough. Objective Data Objective Data Vital Signs: Vital Signs Temp Pulse Resp BP Pulse Ox O2 Del Method FiO2 97.7 F L 50 L 18 143/76 H 95 Room Air 21 06/08/22 10:00 06/08/22 10:00 06/08/22 10:00 06/08/22 10:00 06/08/22 10:00 06/08/22 10:00 06/03/22 19:49 Oxygen Delivery Method Room Air Weight: 166 lb 4.8 oz Body Mass Index (BMI) 25.0 Intake & Output: Intake and Output for Last 24 Hours 06/06/22 06/07/22 06/08/22 23:59 23:59 23:59 Intake Total 1680 / 1800 840 / 840 960 / 960 Output Total 1500 / 1900 950 / 1200 750 / 750 Balance 180 / -100 -110 / -360 210 / 210 Lab / Micro Data Result Diagrams: 06/04/22 05:32 06/04/22 05:32 Labs: Laboratory Results - last 24 hr 06/07/22 16:55: POC Glucose 129 H 06/07/22 20:58: POC Glucose 138 H 06/08/22 06:46: POC Glucose 137 H 06/08/22 11:02: POC Glucose 151 H Physical Exam Narrative Alert, smiling, engaged in the conversation and making good eye contact with the therapist to is speaking. Giving a thumbs up when he hears something positive being said. HEENT HEENT Narrative: MM are moist Resp Resp Narrative: CTA with good respiratory effort. Cardio Cardio Narrative: regular rhythm with bradycardia, lying in bed. GI GI Narrative: Soft, NT, ND, normal BS's Extremity Extremity Narrative: no edema and no calf tenderness. Skin Skin Narrative: No rashes and no breakdown. Neuro Neuro Narrative: Less facial droop and strength is increasing. Still with some neglect Able to read a word and then associate it with the correct picture >80% of the time now. Psych Psych Narrative: Has a more positive outlook and is motivated to do well in therapy and get home. Assessment & Plan Assessment/Plan (1) Physical debility: PLAN: Continue therapy. His family will come in for family training this week and the decision will be made whether he he is safe to go home with family supervision or if he will need to go to SNF. (2) Ischemic cerebrovascular accident (CVA): PLAN: Emboli and due to non-compliance with Xarelto. He is back on Xarelto now and I have reinforced with him and his family the importance of taking this medication daily. (3) Combined receptive and expressive aphasia: PLAN: making progress and ST is going to advance to soft foods from minced and moist. (4) Right sided weakness: (5) Ric-neglect of left side: PLAN: suspect he has hemianopsia.......it is difficult to ascertain due to the language barrier......he blinks to confrontation (6) Paroxysmal atrial fibrillation: PLAN: Has been in SR for the past few times I have examined him. He is bradycardic at rest but, the HR increases with exercise and he is asymptomatic. (7) Chronic anticoagulation: (8) Depression as late effect of cerebrovascular accident (CVA): PLAN: Increase the Sertraline to 100 mg daily.....he has had no adverse SE's and he will need additional therapy, rena for speech, for months to come. (9) Bradycardia: PLAN: Continue the current medications. (10) Prediabetes: PLAN: continue the Metformin 500 mg in the AM. DC the accuchecks Charges/Coding Visit Charges Inpatient E&M: 91936 Subs Hosp L2
[2022-06-08] MEDS: Rivaroxaban 20 MG Tablet PO (16:59)
--- NOTE | 2022-06-08 16:59 | CASEMGMT ---
Addendum entered by Kailey Ryan 06/09/22 14:53: Received return call from dtr requesting outpatient therapy at [facility]. Faxed referral to [facility] for PT/OT/ST Original Note: Social Work Therapy updated this worker family training went well today and family requesting pt DC home 06/13. IDT all agreeable. IDT recommending outpatient PT/OT/ST. SW left message with dtr to assist with DC plans. Plan: DC home 06/13 [place]
[2022-06-08 17:05] LABS: Bedside Glucose 154 mg/dL (74-106)
[2022-06-08] MEDS: Glucerna Shake 120 ML LIQUID PO (18:25)
[2022-06-08 20:50] VITALS: BP 121/64; PULSE 51; RESP 18; TEMP 36.9; O2SAT 94
[2022-06-08 20:55] VITALS: BP 121/64; PULSE 51
[2022-06-08] MEDS: Atorvastatin Calcium 40 MG Tablet PO (20:55)
[2022-06-09] MEDS: dilTIAZem CD 180 MG Capsule PO (08:24)
[2022-06-09] MEDS: Glucerna Shake 120 ML LIQUID PO ×3 (08:24→17:23)
[2022-06-09] MEDS: Aspirin 81 MG TAB.CHEW PO (08:24)
[2022-06-09] MEDS: metFORMIN HCl 500 MG Tablet PO (08:24)
[2022-06-09] MEDS: Sertraline 100 MG Tablet PO (08:26)
[2022-06-09 08:28] VITALS: BP 132/74; PULSE 50; RESP 18; TEMP 36.8; O2SAT 96
[2022-06-09 08:31] VITALS: BP 132/74; PULSE 50
[2022-06-09] MEDS: Metoprolol Tartrate 50 MG Tablet PO ×2 (08:31→20:36)
[2022-06-09 12:52] VITALS: BMI 25.0
[2022-06-09] MEDS: Rivaroxaban 20 MG Tablet PO (17:23)
[2022-06-09 19:45] VITALS: BP 152/70; PULSE 46; RESP 18; TEMP 36.9; O2SAT 98
[2022-06-09 20:36] VITALS: BP 152/70; PULSE 48
[2022-06-09] MEDS: Atorvastatin Calcium 40 MG Tablet PO (20:36)
[2022-06-09 22:00] VITALS: PULSE 48
[2022-06-10 08:13] VITALS: BP 146/73; PULSE 45; RESP 18; TEMP 36.6; O2SAT 97
[2022-06-10] MEDS: Senna/Docusate Sodium 1 Tablet 2 TABLET PO (08:19)
[2022-06-10 08:20] VITALS: BP 146/73; PULSE 45
[2022-06-10] MEDS: Metoprolol Tartrate 50 MG Tablet PO ×2 (08:20→20:11)
[2022-06-10] MEDS: Aspirin 81 MG TAB.CHEW PO (08:20)
[2022-06-10] MEDS: metFORMIN HCl 500 MG Tablet PO (08:20)
[2022-06-10] MEDS: dilTIAZem CD 180 MG Capsule PO (08:20)
[2022-06-10] MEDS: Sertraline 100 MG Tablet PO (08:20)
[2022-06-10] MEDS: Glucerna Shake 120 ML LIQUID PO ×3 (08:20→18:00)
--- NOTE | 2022-06-10 13:58 | PCM.PN.BLA ---
Progress Note Afebrile Systolic blood pressures are still mildly elevated and over the past 2 days have ranged from 121/64-152/70. He denies lightheadedness. Good oral intake. Progressing well in therapy and is ambulating with a straight cane currently. Denies pain, SOB, palpitations, lightheadedness. He is very motivated to get home and does everything the therapists ask of him. Family came in for family training and they feel they can manage his care at home. No bleeding problems with the reinstitution of Xarelto. Denies HERNANDEZ. Physical Exam Const alert and no apparent distress General Appearance: cooperative Eyes PERRL and EOMs intact bilaterally Resp normal respiratory effort, normal air movement, no use of accessory muscles and clear to auscultation bilaterally Cardio regular rhythm Cardio Narrative: bradycardic in the 50's - asymptomatic GI normal to inspection, nondistended, normoactive bowel sounds, soft to palpation and non-tender Extremity no calf tenderness and no pedal edema Skin no jaundice General Skin Exam: no breakdown Rashes: no rashes Neuro Neuro Narrative: walking with a cane now. OT communicated with the orthopedic surgeon who did the recent rotator cuff repair and we can remove the sling and start exercising the RUE. Psych Psych Narrative: Good eye contact when I am speaking with him. He is engaged in the conversation and attempts to participate. He communicates fairly well through hand gestures. He does have some speech now but it is limited. Mood is much better and he is no longer tearful. He is sleeping well at night and eating well. Assessment & Plan Assessment/Plan (1) Physical debility: (2) Ischemic cerebrovascular accident (CVA): (3) Prediabetes: (4) Paroxysmal atrial fibrillation: (5) Oropharyngeal dysphagia: (6) Depression as late effect of cerebrovascular accident (CVA): PLAN: Plan 1. CBC, BMP and MAG in the AM 2. Plan DC on Tuesday home 3. Continue therapy. Will have outpatient PT/OT/ST following discharge home. 4. Family has already received family training. Visit Charges Inpatient E&M: 79035 Subs Hosp L2
[2022-06-10 16:56] VITALS: BMI 25.0
[2022-06-10] MEDS: Rivaroxaban 20 MG Tablet PO (18:00)
[2022-06-10 18:53] VITALS: BP 126/62; PULSE 50; RESP 18; TEMP 36.7; O2SAT 97
[2022-06-10 20:11] VITALS: BP 130/67; PULSE 50
[2022-06-10] MEDS: Atorvastatin Calcium 40 MG Tablet PO (20:11)
[2022-06-10 20:15] VITALS: PULSE 50
[2022-06-11 05:37] LABS: Hematocrit 39.3 % (40-54); Hemoglobin 13.9 g/dL (13.0-16.5); Mean Corp Hgb Conc 35.4 g/dL (32-36); Mean Corpuscular Hgb 32.7 pg (27.0-32.0); Mean Corpuscular Volume 92.5 fL (80-94); Mean Platelet Vol. 9.2 fl (6.2-12.0); Platelet Count 319 K/mm3 (150-450); RBC Distribution Width CV 12.5 % (11.6-14.6); RBC Distribution Width SD 42.6 fl (35.1-43.9); Red Blood Count 4.25 M/mm3 (4.6-6.2); White Blood Count 9.7 K/mm3 (4.4-11.0)
[2022-06-11 06:02] LABS: Anion Gap 8 (5-15); BUN 24 mg/dL (7-18); BUN/Creat Ratio 27.3 RATIO (10-20); Chloride 107 mmol/L (98-107); Creatinine, Serum 0.88 mg/dL (0.70-1.30); EST Glomerular Filtration Rate 92 mL/min (>60); Est Glom Filt Rate - Afr Amer 112 mL/min (>60); Estimated Creatinine Clearance 83.69 ml/min; Glucose 123 mg/dL (74-106); Magnesium 2.1 mg/dL (1.6-2.6); Potassium 3.6 mmol/L (3.5-5.1); Sodium Level 139 mmol/L (136-145)
[2022-06-11 07:56] VITALS: BP 149/69; PULSE 48; RESP 16; TEMP 36.1; O2SAT 98
[2022-06-11 08:46] VITALS: PULSE 50
[2022-06-11] MEDS: Metoprolol Tartrate 50 MG Tablet PO ×2 (08:46→20:34)
[2022-06-11] MEDS: Aspirin 81 MG TAB.CHEW PO (08:47)
[2022-06-11] MEDS: dilTIAZem CD 180 MG Capsule PO (08:47)
[2022-06-11] MEDS: Sertraline 100 MG Tablet PO (08:47)
[2022-06-11] MEDS: metFORMIN HCl 500 MG Tablet PO (08:47)
[2022-06-11] MEDS: Senna/Docusate Sodium 1 Tablet 2 TABLET PO ×2 (08:48→20:34)
--- NOTE | 2022-06-11 11:09 | DCINST_ITS ---
Discharge Instructions Diet Discharge Diet: Low fat / Low cholesterol and Carb Control Diet Activity Discharge Activity: May Not Drive, May Shower and - (Use a cane or a wheeled walker if ambulating outside of your house. ) May resume sexual activity in: No Restrictions Weight Bearing Status: Full weight bearing Lifting Restrictions: No more than 5 lbs. Additional Activity Instructions:: If you have swelling in your ankles elevated them anytime you are sitting in a chair to help decrease swelling. Dressing / Incision Call your doctor if you observe: Fever of 101 or Higher, Inability to urinate, Shortness of breath, Dizziness, Fainting spells, Swelling in the ankles, Chest pain, Increased palpitations (irregular heartbeat), Calf discomfort and Uncontrolled pain Follow Up Care Please Follow Up With: Priscila Sherman MD When: 06/16/22 at 0930 Test Results: Test results from this visit will be discussed in further detail at your follow- up appointment, if applicable. Pending Tests Upon Discharge: None Discharge Plan Admission Admit Date/Time: 05/27/22 23:10 Primary Reason for Your Visit: Post dtroke debility Attending Provider: Elo Nava Primary Care Provider: Care Physician,No Primary Instructions Patient Instructions: Intimacy After Stroke, Hypoglycemia (Low Blood Sugar), Symptoms of Stroke, 5 Steps for Eating Healthier, Diabetes: Meal Planning, AFib Preventing Stroke Additional Instructions / Restrictions: 1. You have worked hard in therapy and have done better than anyone expected. I am happy you will be able to go home at discharge from rehab. You will need ongoing therapy following DC, rena with speech therapy. You will continue to improve with more therapy. 2. Your blood sugars have been elevated while you have been in rehab. A normal blood sugar ranges from 70-100. Your blood sugars have ranged from 120-190. There is a blood test that can be done to test for diabetes and it is called a HBGA1C. A normal, non-diabetic, HGBA1C ranges from 3.8-5.6. A HGBA1C of 6.4 or greater means you have diabetes. Your HGBA1C is 6.2 % which is in a [place] area called glucose intolerance. You are at increased risk of developing diabetes. The things you can do to prevent developing diabetes are maintain a healthy weight, decrease carbohydrate intake and exercise for 30 minutes a day. Exercise decreases the blood sugar. Carrying excess weight causes resistance to the insulin your own body makes and increases blood sugar. Blood sugars often go up in patients with glucose intolerance who have strokes. You were started on a Medication called Metformin (also known as Glucophage) to help keep the blood sugars less than 180 and your blood sugars are for the most part ranging from 120-155 now and this is good. You have had no blood sugars. Make sure not to skip meals. Metformin does not usually cause low blood sugars and you are on a very low dose. The symptoms of a low sugar are sweating, lightheadedness, nausea and weakness. If you have these symptoms check your BS. If the Blood sugar is less than 70 follow the instructions in the handout for hypoglycemia you have been given at discharge. 3. Your heart rate has been ranging from 50-55 when you are not in Atrial fibrillation. This is fine and you are not having any lightheadedness, SOB or weakness with this HR. The heart rate is a little slow now because of the diltiazem and Metoprolol you take to keep the heart from going to fast when you are in atrial fibrillation. 4. Xarelto is VERY IMPORTANT to take consistently to prevent future strokes due to the AFIB (atrial fibrillation). Take it at the same time every day. Other things to do to prevent strokes include keeping the BP under 130/80, keeping the LDL (bad cholesterol) 70 or Less and keeping the HGBa1C < 7. You should ALWAYS know what your HGBA1C is, your average BP and your LDL. you are taking Atorvastatin (Lipitor) to keep the LDL <70. You should take this medication at night. 5. Sometimes memory is impaired with a stroke if have your family remind you to take your medications or set and alarm on your phone to alert you when you should take your medicines. 6. You were very depressed when you came to rehab and I started you on an ant idepressant called Sertraline (also called Zoloft). you are doing much better. Plan on taking this medication for 6 months. If you are doing well at 6 months talk with your doctor about tapering the dose from 100 mg daily to 50 mg daily. After 4-6 weeks on 50 mg if you are still doing well you could decrease to 25 mg daily for a month and if you have had no receurrent depression or anxiety you can try stopping the medication. 7. You now have a primary Care Physician (PCP). Her name is Dr. Belinda Sherman and he office is in [place] on [address] It is important to follow up regularly with your PCP to make sure the blood sugars, blood pressure, cholesterol are adequately controlled so you minimize your risk for more strokes. She will also Also provide preventative health care (such as vaccines, screenings for Cancer, etc.). 8. AND FINALLY, it was a pleasure to meet you and your family and I am glad we could help you recover while in rehab. If you or your family ever need our services in the future we would welcome you back. Take care of yourself and have a happy life. If you have any questions after you leave rehab please do not hesitate to call me. Office: [phone] CELL: [phone] Discharge Orders/Prescriptions Prescriptions: New metformin 500 mg Tablet 500 mg PO DAILYCM Qty: 30 0RF Rx Instructions: Take with breakfast daily diltiazem HCl 180 mg Capsule,Extended Release 24hr 180 mg PO DAILY Qty: 30 0RF sertraline 100 mg Tablet 100 mg PO DAILY Qty: 30 0RF Rx Instructions: 1 tab with breakfast for depression/anxiety metoprolol tartrate 50 mg Tablet 50 mg PO BID Qty: 60 0RF Rx Instructions: 1 tab twice daily for HTN and AF Continued aspirin 81 mg Tablet,Chewable 81 mg PO DAILY atorvastatin 40 mg Tablet 40 mg PO DAILY Qty: 30 0RF Rx Instructions: 1 tab at bedtime to control cholesterol Xarelto 20 mg Tablet 20 mg PO DAILY Qty: 30 0RF Rx Instructions: must administer with evening meal Discontinued oxycodone-acetaminophen 5-325 mg tablet Q8H PRN PRN (Reason: PAIN (1-10)) Label Comments: TAKE 1 TABLET BY MOUTH EVERY 8 HOURS NEEDED diltiazem HCl [Cardizem LA] 240 mg Tablet Extended Release 24 Hr 240 mg PO DAILY metoprolol tartrate 25 mg tablet 50 mg BID Label Comments: TAKE 1 TABLET BY MOUTH TWICE DAILY Other Ambulatory Orders: Glucometer (Routine) Timeframe: 1 Day Location: Determined by Patient Ordered By: Dr. Elo Nava Referrals / Follow Up: Priscila Sherman MD [Med Staff - Active Staff] - 06/16/22 9:30 am Catarino You MD [Non-Staff -Ordering Privileges] - (left message with office. ) Disposition Disposition (needs filled in before D/C Order can be placed): Home, Self Care
--- NOTE | 2022-06-11 14:03 | EX.DISCHREH ---
Providers Date of Admission: 05/27/22 Date of Discharge: 06/13/22 Primary Care Physician: Dr. Belinda Sherman Reason For Visit: CVA Diagnosis Discharge Diagnosis (1) Physical debility: Status: Acute Code(s): R53.81 - Other malaise (2) Ischemic cerebrovascular accident (CVA): Status: Acute Code(s): I63.9 - Cerebral infarction, unspecified Plan: Embolic due to non-compliance with Xarelto following rotator cuff surgery. (3) Combined receptive and expressive aphasia: Status: Acute Code(s): R47.01 - Aphasia Plan: expressive >> receptive (4) Oropharyngeal dysphagia: Status: Acute Code(s): R13.12 - Dysphagia, oropharyngeal phase Plan: Moderate (5) Right sided weakness: Status: Acute Code(s): R53.1 - Weakness Plan: Walking with a straight cane now. Still catching his toe at times when ambulating. No falls (6) Ric-neglect of left side: Status: Acute Code(s): R41.4 - Neurologic neglect syndrome Plan: Getting better. (7) Paroxysmal atrial fibrillation: Status: Acute Code(s): I48.0 - Paroxysmal atrial fibrillation Plan: He has been in SR while on rehab and the HR ranges from 50-55 at rest. He is asymptomatic. (8) Chronic anticoagulation: Status: Acute Code(s): Z79.01 - MCFP (current) use of anticoagulants Plan: Xarelto (9) Depression as late effect of cerebrovascular accident (CVA): Status: Acute Code(s): I69.398 - Other sequelae of cerebral infarction; F06.31 - Mood disorder due to known physiological condition with depressive features Plan: Currently on Sertraline 100 mg daily with no adverse SE's. (10) Bradycardia: Status: Acute Code(s): R00.1 - Bradycardia, unspecified Plan: Asymptomatic. (11) Prediabetes: Status: Acute Code(s): R73.03 - Prediabetes Plan: HGBA1C 6.2%. On Glucophage and BS's now ranging from 120-155 for the most part. Tolerating Glucophage with no adverse reactions. No diarrhea. He is on a carb controlled diet. (12) Apraxia complicating stroke: Status: Acute (13) Hypertension: Status: Chronic Code(s): I10 - Essential (primary) hypertension Plan: Systolic is mildly elevated but, may decrease when he is home. Will defer to Dr. Sherman to assess BP's after he is discharged from rehab and make adjustments to medication as need to keep the BP under 130/80 to minimize risk for future CVA's. (14) Dyslipidemia: Status: Acute Code(s): E78.5 - Hyperlipidemia, unspecified Plan: At the time of the stroke his LDL was 114 ad the HDL was 55. Needs a Lipid panel and a liver profile in Mid June. Plan 1. DC home on 06/13/22 2. OP PT/OT/ST 3. Has a straight cane 4. Family went through family training prior to Don's DC from rehab and they feel they will be able to provide the supervision and supportive care. Medications at Discharge Home Medications aspirin 81 mg chewable tablet 81 mg PO DAILY HE[facility] 05/28/22 atorvastatin 40 mg tablet 40 mg PO DAILY CHOLESTEROL #30 tabs 06/11/22 diltiazem HCl 180 mg capsule,extended release 24 hr 180 mg PO DAILY #30 caps 06/11/22 metformin 500 mg tablet 500 mg PO DAILYCM #30 tabs 06/11/22 metoprolol tartrate 50 mg tablet 50 mg PO BID #60 tabs 06/11/22 rivaroxaban 20 mg tablet (Xarelto) 20 mg PO DAILY BLOOD THINNER #30 tabs 06/11/22 sertraline 100 mg tablet 100 mg PO DAILY #30 tabs 06/11/22 Hospital Course Operations None Procedures - ( Diagnosis/Impression Diagnosis: moderate oropharyngeal dysphagia R13.12 Impression: Oral phase primarily marked by... - mastication insufficiency w/ piecemeal deglutition of cookie, 4x swallows to clear oral and pharyngeal residue - slowed tongue motion - decreased bolus control resulting in wool hat flanger) Summary of Care Provided Minutes Spent on Discharge: 40 Hospital Course: MARY MATTHEWS, is a 66 YO M with a PMH of PAF (on Metoprolol and diltiazem for rate control) and chronic anticoagulation with Xarelto who presented to [facility] on 05/25/22 with complaint of facial droop, trouble walking and inability to speak.? He was last seen normal at bedtime the night before.? He was in AF at a rate of 134 bpm upon arrival at the emergency department. He had recently had a R rotator cuff repair on 04/16/22 and Xarelto had been held for 2 weeks.? He was supposed to have restarted Xarelto but, his did not know if he ever resumed Xarelto after the surgery.? NIH upon arrival at the ED was 6.?NC CTB showed no bleeding.? CTA of the head and neck showed the carotid and vertebral circulation to be within normal limits.? There was a diminutive basilar artery.? He was then sent for an MRI that demonstrated an acute ischemic infarction in the left cerebral hemisphere.? An incidental finding was an arachnoid cyst in the left middle cranial fossa measuring 2 cm x 4 cm with no measurable mass-effect.? Blood pressure at arrival to the emergency department was 187/116.? He was started on a Cardizem infusion and heparin.? HGBA1C was 6.2 and the LDL was 114 with an HDL of 55.? While at [facility] he also had a transthoracic echocardiogram that showed normal left ventricular function with an EF of 60%.? There was no significant valvular heart disease.? There was no mention on the ECHO report of a bubble study being done.? He was seen by PT/OT/ST while in the hospital and recommendation was made for acute rehab at [facility].? He was transferred to the acute inpt rehab unit at [facility] on 05/27/22 for 3 hours of therapy daily to restore function/independence at or hear his level prior to the stroke.? He is retired and is very active at baseline.? 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 At the time he presented to rehab Don had no speech. In addition to expressive aphasia he had receptive aphasia, facial droop, cognitive dysfunction and Left side weakness (leg> arm). He was very tearful and depressed about the dysfunction caused by the stroke and frustrated about not being able to make himself understood due to the expressive aphasia. He was agreeable to an antidepressant and he was started on Sertraline. He had no adverse reactions while on Sertraline and he was kept on Sertraline 100 mg daily at [facility]. FBS's were elevated consistently and he had no hx of DM. A HGBA1C was checked and it was elevated at 6.2. Accuchecks were ordered and his BS's were all under 200 but, there were BS's in the 180's at times. He was placed on a carb consistent diet and he and his family were educated by the cost estimator. Because he just had a stroke and blood sugar control is very important he was started on Glucophage 500 mg in the AM and the BS's came down and were in the 130-150 range for the most part. He had no hypoglycemia. The cost estimator also educated the pt and his family on a low fate, low salt diet. He did very well in therapy and progressed much faster than I had anticipated, rena with speech. Prior to DC his family came in for training by the therapists in how best to assist Yariel following DC. They felt they could provide all the assistance he needed at home and felt comfortable with him coming home and going to OP therapy post discharge. At the time of discharge Yariel had ambulated up to 225 feet at CGA on even surfaces using a straight cane. He had ambulated up to 100 feet on uneven surfaces with a single-point cane. He was able to ascend/descend to 6 inch steps and three 4 inch steps with a left handrail at minimal assistance. He was independent with eating and required only min assist with grooming......mostly due to the fact that he had recently had R rotator cuff surgery and was in a sling at the time he arrived on rehab. The OT called his orthopedic doctor and we were allowed to remove the sling and start therapy on the RUE prior to DC from rehab. He required minimal assistance with bathing, upper body dressing and lower body dressing. He was contact-guard assist for tub/shower transfer. Yariel was discharged home on 06/13/2022 and will follow-up with Dr. Belinda Sherman for primary care on 06/16/22 at 0930. He will also follow up with Dr. You for neurology. The importance of follow up with his PCP and strict adherence to the medication regimen were stressed to Yariel and his family. Yariel and his family were educated on stroke warning signs, stroke risk factors and goals for BS control, BP control and Lipid control. He will need follow up lab for Lipid and liver panels in 6 weeks post DC to make sure that the LDL is within goal. Physical Exam Const Constitutional Narrative: alert, smiling, engaged, good eye contact, no tears and he is much more animated. Was able to repeat Mama ad a few other sounds to me. Good understanding of what I am saying. General Appearance: cooperative HEENT normocephalic and head/scalp atraumatic Eyes PERRL and EOMs intact bilaterally Eyes Narrative: PERRL, EOMI, can cross the midline Neck No nuchal rigidity and no lymphadenopathy General: trachea midline Resp normal respiratory effort, normal air movement, no use of accessory muscles and clear to auscultation bilaterally Effort and Inspection: Negative for tachypneic, respiratory distress, labored or uses accessory muscles Cardio regular rhythm, S1 normal heart sound, S2 normal heart sound, no murmurs, no rub and no gallops Cardio Narrative: bradycardic in the 50's - asymptomatic GI normal to inspection, nondistended, normoactive bowel sounds, soft to palpation and non-tender Extremity no calf tenderness and no pedal edema Skin no jaundice General Skin Exam: no breakdown Rashes: no rashes Neuro moves all extremities Neuro Narrative: Has some speech now but, still dysarthric. Understands more than he can express. Facial droop is improving. Still with L leg weakness but, able to ambulate with a straight cane now and we are no longer having to wrap the LLE into dorsiflexion. Still with a mild L foot drop but, only occasionally dragging his toe now and is able to maintain his balance. Psych cooperative Psych Narrative: Good eye contact when I am speaking with him. He is engaged in the conversation and attempts to participate. He communicates fairly well through hand gestures. Speech is still pretty limited but, he understands what I am saying to him for the most part and can follow simple commands. Mood is much better and he is no longer tearful. He is sleeping well at night and eating well. He participates willingly in all the activities that are asked of him and smiles a lot. Weight / BMI Weight Weight: 164 lb 7.437 oz Body Mass Index (BMI) 25.0 ABG / Lab / Microbiology Data Result Diagrams: 06/11/22 05:05 06/11/22 05:05 Laboratory: Laboratory Results - last 24 hr 06/11/22 05:05: WBC 9.7, RBC 4.25 L, Hgb 13.9, Hct 39.3 L, MCV 92.5, MCH 32.7 H, MCHC 35.4, RDW Std Deviation 42.6, RDW Coeff of Johan 12.5, Plt Count 319, MPV 9.2 06/11/22 05:05: Sodium 139, Potassium 3.6, Chloride 107, Carbon Dioxide 24.0, Anion Gap 8, BUN 24 H, Creatinine 0.88, Estim Creat Clear Calc 83.69, Est GFR (MDRD) Af Amer 112, Est GFR (MDRD) Non-Af 92, BUN/Creatinine Ratio 27.3 H, Glucose 123 H, Calcium 9.0, Magnesium 2.1 Indicators for Scoring Admitted with or Primary Diagnosis of CVA/Stroke: Yes Hx of CVA/Stroke: No Modified Johnston Score MRS Score at time of Evaluation: 4-Moderate/severe disability NIHSS NIHSS 1a. Level of Consciousness: Alert; keenly responsive 1b. LOC Questions: Answers one question correctly. (I think this is more of a problem with aphasia and not being able to get the word out than with ability to understand what I am asking.) 1c. LOC Commands: Performs both tasks correctly. 2. Best Gaze: Normal 3. Visual: No visual loss 4. Facial Palsy: Minor paralysis (flattened nasolabial fold, asymmetry on smiling) 5a. Left Arm: No drift; arm holds 90 (or 45) degrees for full 10 seconds 5b. Right Arm: Drift; arm drifts downward but doesn?t hit the bed (Just got out of a sling after having rotatior cuff surgery and the RUE is weak from this. ) 6a. Left Leg: No drift; leg holds 30-degree position for full 5 seconds 6b. Right Leg: No drift; leg holds 30-degree position for full 5 seconds 7. Limb Ataxia: Absent 8. Sensory: [id number] sensory loss; 9. Best Language: Severe aphasia; 10. Dysarthria: Severe dysarthria; 11. Extinction and Inattention: Visual, tactile, auditory, spatial, or personal inattention (spatial neglect is much better but, still not completely resolved) Total: 9 (down from 15 at admission from rehab.) Stroke Questions Stroke Team Activated: No D/C Instructions Discharge Diet: Low fat / Low cholesterol and Carb Control Diet May resume sexual activity in: No Restrictions Weight Bearing Status: Full weight bearing Additional Activity Instructions: If you have swelling in your ankles elevated them anytime you are sitting in a chair to help decrease swelling. Call your doctor if you observe: Fever of 101 or Higher, Inability to urinate, Shortness of breath, Dizziness, Fainting spells, Swelling in the ankles, Chest pain, Increased palpitations (irregular heartbeat), Calf discomfort and Uncontrolled pain Pending Tests Upon Discharge: None Please Follow Up With: Priscila Sherman MD When: 06/16/22 at 0930 Meaningful Use Info Meaningful Use Diagnoses (Choose all that apply): Ischemic CVA CVA Therapy Assessed for PT,OT and/or ST?: Yes Ischemic Stroke Antithrombotic order at d/c?: Yes Dx of Atrial fib/flutter?: Yes Anticoagulant at discharge?: Yes Statins at discharge?: Yes Primary Dx Acute Ischemic CVA?: Yes IV tPA ordered during stay?: No Reason IV t-PA not ordered: Treatment not Indicated Discharge Plan Admission Admit Date/Time: 05/27/22 23:10 Primary Reason for Your Visit: Post dtroke debility Attending Provider: Elo Nava Primary Care Provider: Care Physician,No Primary Instructions Patient Instructions: Intimacy After Stroke, Hypoglycemia (Low Blood Sugar), Symptoms of Stroke, 5 Steps for Eating Healthier, Diabetes: Meal Planning, AFib Preventing Stroke Additional Instructions / Restrictions: 1. You have worked hard in therapy and have done better than anyone expected. I am happy you will be able to go home at discharge from rehab. You will need ongoing therapy following DC, rena with speech therapy. You will continue to improve with more therapy. 2. Your blood sugars have been elevated while you have been in rehab. A normal blood sugar ranges from 70-100. Your blood sugars have ranged from 120-190. There is a blood test that can be done to test for diabetes and it is called a HBGA1C. A normal, non-diabetic, HGBA1C ranges from 3.8-5.6. A HGBA1C of 6.4 or greater means you have diabetes. Your HGBA1C is 6.2 % which is in a drum[place] area called glucose intolerance. You are at increased risk of developing diabetes. The things you can do to prevent developing diabetes are maintain a healthy weight, decrease carbohydrate intake and exercise for 30 minutes a day. Exercise decreases the blood sugar. Carrying excess weight causes resistance to the insulin your own body makes and increases blood sugar. Blood sugars often go up in patients with glucose intolerance who have strokes. You were started on a Medication called Metformin (also known as Glucophage) to help keep the blood sugars less than 180 and your blood sugars are for the most part ranging from 120-155 now and this is good. You have had no blood sugars. Make sure not to skip meals. Metformin does not usually cause low blood sugars and you are on a very low dose. The symptoms of a low sugar are sweating, lightheadedness, nausea and weakness. If you have these symptoms check your BS. If the Blood sugar is less than 70 follow the instructions in the handout for hypoglycemia you have been given at discharge. 3. Your heart rate has been ranging from 50-55 when you are not in Atrial fibrillation. This is fine and you are not having any lightheadedness, SOB or weakness with this HR. The heart rate is a little slow now because of the diltiazem and Metoprolol you take to keep the heart from going to fast when you are in atrial fibrillation. 4. Xarelto is VERY IMPORTANT to take consistently to prevent future strokes due to the AFIB (atrial fibrillation). Take it at the same time every day. Other things to do to prevent strokes include keeping the BP under 130/80, keeping the LDL (bad cholesterol) 70 or Less and keeping the HGBa1C < 7. You should ALWAYS know what your HGBA1C is, your average BP and your LDL. you are taking Atorvastatin (Lipitor) to keep the LDL <70. You should take this medication at night. 5. Sometimes memory is impaired with a stroke if have your family remind you to take your medications or set and alarm on your phone to alert you when you should take your medicines. 6. You were very depressed when you came to rehab and I started you on an antidepressant called Sertraline (also called Zoloft). you are doing much better. Plan on taking this medication for 6 months. If you are doing well at 6 months talk with your doctor about tapering the dose from 100 mg daily to 50 mg daily. After 4-6 weeks on 50 mg if you are still doing well you could decrease to 25 mg daily for a month and if you have had no receurrent depression or anxiety you can try stopping the medication. 7. You now have a primary Care Physician (PCP). Her name is Dr. Belinda Sherman and he office is in [place] on . It is important to follow up regularly with your PCP to make sure the blood sugars, blood pressure, cholesterol are adequately controlled so you minimize your risk for more strokes. She will also Also provide preventative health care (such as vaccines, screenings for Cancer, etc.). 8. AND FINALLY, it was a pleasure to meet you and your family and I am glad we could help you recover while in rehab. If you or your family ever need our services in the future we would welcome you back. Take care of yourself and have a happy life. If you have any questions after you leave rehab please do not hesitate to call me. Office: [phone] CELL: [phone] Discharge Orders/Prescriptions Prescriptions: New metformin 500 mg Tablet 500 mg PO DAILYCM Qty: 30 0RF Rx Instructions: Take with breakfast daily diltiazem HCl 180 mg Capsule,Extended Release 24hr 180 mg PO DAILY Qty: 30 0RF sertraline 100 mg Tablet 100 mg PO DAILY Qty: 30 0RF Rx Instructions: 1 tab with breakfast for depression/anxiety metoprolol tartrate 50 mg Tablet 50 mg PO BID Qty: 60 0RF Rx Instructions: 1 tab twice daily for HTN and AF Continued aspirin 81 mg Tablet,Chewable 81 mg PO DAILY atorvastatin 40 mg Tablet 40 mg PO DAILY Qty: 30 0RF Rx Instructions: 1 tab at bedtime to control cholesterol Xarelto 20 mg Tablet 20 mg PO DAILY Qty: 30 0RF Rx Instructions: must administer with evening meal Discontinued oxycodone-acetaminophen 5-325 mg tablet Q8H PRN PRN (Reason: PAIN (1-10)) Label Comments: TAKE 1 TABLET BY MOUTH EVERY 8 HOURS NEEDED diltiazem HCl [Cardizem LA] 240 mg Tablet Extended Release 24 Hr 240 mg PO DAILY metoprolol tartrate 25 mg tablet 50 mg BID Label Comments: TAKE 1 TABLET BY MOUTH TWICE DAILY Other Ambulatory Orders: Glucometer (Routine) Timeframe: 1 Day Location: Determined by Patient Ordered By: Dr. Elo Naav Referrals / Follow Up: Priscila Sherman MD [Med Staff - Active Staff] - 06/16/22 9:30 am Catarino You MD [Non-Staff -Ordering Privileges] - (left message with office. ) Disposition Disposition (needs filled in before D/C Order can be placed): Home, Self Care Charges/Coding Visit Charges Inpatient E&M: 58122 Disch Hosp
--- NOTE | 2022-06-11 15:54 | CASEMGMT ---
Social Work Received request from nursing per dtr about a rollator. SW inquired to PT about rollator at DC - pt does not need or is recommended to have a rollator a pt is using a cane. SW left message with explaining pt is using cane not rollator. Received voicemail from OT stating pt does not have a cane and needs one at DC. SW returned call and spoke with nursing whom is having write script and faxing to [facility]. is aware to grape picker at [facility]. Kailey Ryan, TUBE ROLLER FREELANCE MAKEUP ARTIST
[2022-06-11 17:00] VITALS: BMI 25.0
[2022-06-11] MEDS: Rivaroxaban 20 MG Tablet PO (17:28)
[2022-06-11 19:29] VITALS: BP 126/64; PULSE 53; RESP 18; TEMP 36.8; O2SAT 97
[2022-06-11 20:32] VITALS: BMI 25.0
[2022-06-11] MEDS: Atorvastatin Calcium 40 MG Tablet PO (20:33)
[2022-06-11 20:34] VITALS: PULSE 56
[2022-06-11 20:38] VITALS: PULSE 56; RESP 16; O2SAT 98
[2022-06-12] MEDS: Sertraline 100 MG Tablet PO (08:35)
[2022-06-12] MEDS: metFORMIN HCl 500 MG Tablet PO (08:35)
[2022-06-12] MEDS: Aspirin 81 MG TAB.CHEW PO (08:35)
[2022-06-12] MEDS: Senna/Docusate Sodium 1 Tablet 2 TABLET PO (08:36)
--- NOTE | 2022-06-12 09:50 | NURSING ---
Notified Dr. Nava of patients V.S. received order to give Metoprolol and Cardizem as scheduled.
[2022-06-12 09:52] VITALS: PULSE 46
[2022-06-12] MEDS: Metoprolol Tartrate 50 MG Tablet PO ×2 (09:52→20:54)
[2022-06-12] MEDS: dilTIAZem CD 180 MG Capsule PO (09:53)
[2022-06-12 09:56] VITALS: BP 143/68; PULSE 46; RESP 16; TEMP 36.4; O2SAT 98
[2022-06-12 10:00] VITALS: PULSE 46
[2022-06-12 13:15] VITALS: BMI 25.0
[2022-06-12] MEDS: Rivaroxaban 20 MG Tablet PO (17:30)
[2022-06-12 19:52] VITALS: BP 135/72; PULSE 48; RESP 18; TEMP 35.8; O2SAT 97
[2022-06-12 20:54] VITALS: BP 135/72; PULSE 49
[2022-06-12] MEDS: Atorvastatin Calcium 40 MG Tablet PO (20:54)
[2022-06-12 21:00] VITALS: O2SAT 97
[2022-06-13 07:40] VITALS: BP 153/77; PULSE 50
[2022-06-13] MEDS: Sertraline 100 MG Tablet PO (07:40)
[2022-06-13] MEDS: Metoprolol Tartrate 50 MG Tablet PO (07:40)
[2022-06-13] MEDS: metFORMIN HCl 500 MG Tablet PO (07:40)
[2022-06-13] MEDS: Aspirin 81 MG TAB.CHEW PO (07:40)
[2022-06-13] MEDS: dilTIAZem CD 180 MG Capsule PO (07:41)
[2022-06-13] MEDS: Senna/Docusate Sodium 1 Tablet 2 TABLET PO (07:41)
[2022-06-13 08:44] VITALS: BP 153/77; PULSE 46; RESP 16; TEMP 35.8; O2SAT 97
[2022-06-13 08:47] VITALS: PULSE 50; RESP 16; O2SAT 97
== END 2022-06-13 09:50 | disposition home or self-care (01) | DRG 57 ==
PROVIDERS: Admitting Provider Internal Medicine; Visit Provider Internal Medicine
DX: I69.351 Hemiplegia and hemiparesis following cerebral infarction affecting right dominant side (principal); E78.5 Hyperlipidemia, unspecified; I48.0 Paroxysmal atrial fibrillation; G93.0 Cerebral cysts; F32.A Depression, unspecified; I10 Essential (primary) hypertension; I69.320 Aphasia following cerebral infarction; R00.1 Bradycardia, unspecified; I69.398 Other sequelae of cerebral infarction; I69.392 Facial weakness following cerebral infarction; I69.390 Apraxia following cerebral infarction; Z87.891 Personal history of nicotine dependence; Z79.82 Long term (current) use of aspirin; R73.03 Prediabetes; Z79.01 Long term (current) use of anticoagulants; Z79.899 Other long term (current) drug therapy; R13.12 Dysphagia, oropharyngeal phase
CPT/HCPCS: 36415; 74230; 80048; 80053; 82962; 83036; 83735; 84100; 84443; 85014; 85018; 85025; 85027; 92507; 92523; 92526; 92610; 92611; 94762; 97110; 97112; 97116; 97140; 97162; 97166; 97530; 97535; 97803